=== PATIENT | male | born 2000 | race Caucasian/White ===

== ENCOUNTER 2020-02-27 15:17 | Emergency (ER) | payer BC, OTHER ==
[~2020-02-27] VITALS: Ht 170 cm; Wt 65.0 kg
--- OUTSIDE RECORDS SUMMARY | 2020-02-27 15:23 | XMS REPORT | Continuity of Care Document ---
Author Organization Unknown Address Unknown Phone Unavailable Allergies There is no data. Medications There is no data. Problems There is no data. Procedures There is no data. Results Test Result Range GC/CHLAMYDIA (SWAB OR URINE)-RAPID - 09/08 18:26 CHLAMYDIA TRACHOMATIS RNA, TMA DETECTED NOT DETECTED NEISSERIA GONORRHOEAE RNA, TMA NOT DETECTED NOT DETECTED COMMENT NRG Encounters ACCT No. Visit Date/Time Discharge Status Pt. Type Provider Facility Loc./Unit Complaint [id number] 12/02/2019 07:40:00 12/02/2019 23:59: 59 CLS Outpatient ISABELA HURT LAC [facility] [id number] 04/30/2019 18:00:00 Document Registration
[2020-02-27 15:30] VITALS: BP 115/85
[2020-02-27] MEDS ORDERED: HYDR-4196 PO (15:36)
[2020-02-27] MEDS ORDERED: PENI500T PO (15:36)
[2020-02-27] MEDS ORDERED: oxyCODONE/APAP 5/325MG (PERCOCET 5) TABLET PO ONE (15:45)
--- NOTE | 2020-02-27 20:17 | ED EENT ---
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 TRIED CAVIT FROM [facility] BUT STILL HURTS. Source: patient Exam Limitations: no limitations History of Present Illness Date Seen by Provider: February 27, 2020 Time Seen by Provider: 15:22 Initial Comments Patient is a 20-year-old male presents with left upper premolar dental pain after loosing a crown eating 30 minutes prior to ED arrival. Patient with clear removed dental crown with exposed dentin. Patient applied dental wax prior to ED arrival. Reports moderate to severe pain. No other symptoms or complaints. Timing/Duration: abrupt Severity: moderate Location: dental Prearrival Treatment: over the counter meds Modifying Factors: Improves With Other (eating) Associated Symptoms: denies symptoms Allergies and Home Medications Allergies Coded Allergies: No Known Drug Allergies (Unverified , 02/27/20) Home Medications Hydrocodone/Acetaminophen 1 Each Tablet, 1 TAB PO Q6H PRN for PAIN-MODERATE Prescribed by: ANDREEA ROSARIO on 02/27/20 1536 Penicillin V Potassium 500 Mg Tablet, 500 MG PO QID Prescribed by: ANDREEA ROSARIO on 02/27/20 1536 Patient Home Medication List Home Medication List Reviewed: Yes Review of Systems Review of Systems Constitutional: see HPI Eyes: See HPI Ears: See HPI Nose: see HPI Mouth: see HPI Respiratory: see HPI Cardiovascular: no symptoms reported Past Gfjoksl-Txxqxj-Sphnla Hx Past Med/Social Hx: Reviewed Nursing Past Med/Soc Hx Patient Social History Alcohol Use: Rarely Uses Recreational Drug Use: No Smoking Status: Heavy Tobacco Smoker Type Used: Smokeless Tobacco 2nd Hand Smoke Exposure: No Recent Foreign Travel: No Contact w/Someone Who Travel: No Recent Infectious Disease Expo: No Physical Abuse: No Sexual Abuse: No Mistreated: No Fear: No Seasonal Allergies Seasonal Allergies: No Past Medical History Surgeries: Yes (LEFT FEMUR) Orthopedic Respiratory: No Cardiac: No Neurological: No Genitourinary: No Gastrointestinal: No Musculoskeletal: No Endocrine: No HEENT: No Cancer: No Psychosocial: No Blood Disorders: No Physical Exam Vital Signs Vital Signs - First Documented 02/27/20 15:26 Temp 36.9 Pulse 92 Resp 18 B/P (MAP) 115/85 (95) Pulse Ox 98 O2 Delivery Room Air Height, Weight, BMI Height: '" Weight: lbs. oz. kg; 22.00 BMI Method: General Appearance: mild distress Eyes: bilateral eye normal inspection, bilateral eye PERRL, bilateral eye EOMI Ears: bilateral ear auricle normal, bilateral ear canal normal Nose: normal inspection Mouth/Throat: pharynx normal, other (left upper pre-molar partially avulsed crown with Dentin exposure) Neck: non-tender, supple Cardiovascular: normal peripheral pulses, regular rate, rhythm Respiratory: chest non-tender, lungs clear Gastrointestinal: non tender, soft Neurologic/Psychiatric: alert, oriented x 3 Skin: normal color Progress/Results/Core Measures Results/Orders My Orders Orders - ANDREEA ROSARIO DO Oxycodone/Apap 5/325mg Tablet (Percocet (02/27/20 15:45) Medications Given in ED Current Medications Medications Dose Ordered Sig/Migue Route Start Time Stop Time Status Last Admin Dose Admin Oxycodone/ Acetaminophen 1 tab ONCE ONCE PO 02/27/20 15:45 02/27/20 15:42 DC 02/27/20 15:38 1 TAB Vital Signs/I&O 02/27/20 02/27/20 15:26 15:30 Temp 36.9 36.9 Pulse 92 92 Resp 18 18 B/P (MAP) 115/85 (95) 115/85 (95) Pulse Ox 98 98 O2 Delivery Room Air Blood Pressure Mean: 95 Departure Communication (Admissions) Abx and pain medications prescribed. Patient instructed to use dental wax and follow-up with dentist of choice [facility] Saturday Impression Primary Impression: Tooth fractures Disposition: HOME, SELF-CARE Condition: Stable Departure-Patient Inst. Decision time for Depature: 15:35 Patient Instructions: Dental Pain (DC) Add. Discharge Instructions: Follow up with dentist of choice as soon as possible All discharge instructions reviewed with patient and/or family. Voiced understanding. Scripts Hydrocodone/Acetaminophen ([place] 10-325 Tablet) 1 Each Tablet 1 TAB PO Q6H PRN for PAIN-MODERATE MDD 5 TABS for 3 Days, #14 TAB Prov: ANDREEA ROSARIO DO 02/27/20 Penicillin V Potassium (Penicillin V Potassium) 500 Mg Tablet 500 MG PO QID, #40 TAB Prov: ANDREEA ROSARIO DO 02/27/20 ANDREEA ROSARIO DO February 27, 2020 20:17
== END 2020-02-27 15:42 | disposition home or self-care (01) ==
LOC: ER FS 15:19
DX: S02.5XXA Fracture of tooth (traumatic), initial encounter for closed fracture (principal); X58.XXXA Exposure to other specified factors, initial encounter
CPT/HCPCS: 99282

== ENCOUNTER 2020-03-01 16:22 | Emergency (ER) | payer BC ==
[~2020-03-01] VITALS: Ht 170.1 cm; Wt 65.5 kg
[~2020-03-01 16:22] MED LIST: HYDR-4196 PO; PENI500T PO
[2020-03-01 16:25] VITALS: BP 133/71
[2020-03-01] MEDS ORDERED: HYDR-83 PO (16:40)
--- NOTE | 2020-03-01 16:41 | ED EENT ---
History of Present Illness General Chief Complaint: Dental Problems/Pain Stated Complaint: TOOTH PAIN,HEADACHE,VOMITING History of Present Illness Date Seen by Provider: March 01, 2020 Time Seen by Provider: 16:35 Initial Comments presents w cont'd left upper molar and jaw pain. Sent to ER from work due to having headache and tooth pain. Seen in this ER and given Hydrocodone end of last wk after tooth broke. Also taking PCN. States he has dental appt on 07 March and has been calling everywhere to get in earlier, but without results. Pain waxes and wanes, sometimes tylenol helps. Using dental paste w some relief. No swelling of face, jaw or neck. No other dental pain. Allergies and Home Medications Allergies Coded Allergies: No Known Drug Allergies (Unverified , 02/27/20) Home Medications Hydrocodone/Acetaminophen 1 Each Tablet, 1 EACH PO Q4H Prescribed by: RICARDO CELAYA on 03/01/20 1640 Penicillin V Potassium 500 Mg Tablet, 500 MG PO QID Prescribed by: ANDREEA ROSARIO on 02/27/20 1536 Patient Home Medication List Home Medication List Reviewed: Yes Review of Systems Review of Systems Constitutional: see HPI; No chills, No fever, No malaise Mouth: see HPI; denies loose teeth; pain; denies swelling, denies purulent discharge, denies previous injury Throat: denies pain, denies swelling Skin: see HPI; No change in color, No lesions, No lumps, No rash Neurological: See HPI, Headache Past Beavbpf-Akijtp-Vccwnh Hx Past Med/Social Hx: Reviewed Nursing Past Med/Soc Hx Patient Social History Alcohol Use: Occasionally Uses Recreational Drug Use: No Type Used: Smokeless Tobacco 2nd Hand Smoke Exposure: No Recent Foreign Travel: No Contact w/Someone Who Travel: No Recent Hopitalizations: No Physical Abuse: No Sexual Abuse: No Mistreated: No Fear: No Immunizations Up To Date Tetanus Booster (TDap): Unknown Seasonal Allergies Seasonal Allergies: No Past Medical History Surgeries: Yes (LEFT FEMUR) Orthopedic Respiratory: No Cardiac: No Neurological: No Genitourinary: No Gastrointestinal: No Musculoskeletal: No Endocrine: No HEENT: No Cancer: No Psychosocial: No Integumentary: No Blood Disorders: No Physical Exam Vital Signs Vital Signs - First Documented 03/01/20 16:25 Temp 36.9 Pulse 80 Resp 16 B/P (MAP) 133/71 (91) Pulse Ox 100 O2 Delivery Room Air Height, Weight, BMI Height: '" Weight: lbs. oz. kg; 22.00 BMI Method: General Appearance: WD/WN, no apparent distress Mouth/Throat: normal mouth inspection, pharynx normal, dental tenderness; No e xcessive drooling, No foreign body, No mandibular swelling, No maxillary swelling, No pharynx swelling, No pharynx tenderness, No tongue swollen, No tonsillar exudate, No tonsillar swelling, No trismus, No uvula swelling, No voice changes Neck: non-tender, supple; No lymphadenopathy (R), No lymphadenopathy (L) Skin: normal color, warm/dry dental paste filling in center of left upper mid molar. No gum swelling or evidence of abscess formation. Tender to touch Progress/Results/Core Measures Results/Orders Vital Signs/I&O 03/01/20 16:25 Temp 36.9 Pulse 80 Resp 16 B/P (MAP) 133/71 (91) Pulse Ox 100 O2 Delivery Room Air Departure Impression Primary Impression: Mandible pain Additional Impression: Dental injury Qualified Codes: S09.93XA - Unspecified injury of face, initial encounter Disposition: HOME, SELF-CARE Condition: Stable Departure-Patient Inst. Decision time for Depature: 16:40 Referrals: NO,LOCAL PHYSICIAN (PCP/Family) Primary Care Physician Patient Instructions: Fractured Tooth (DC) Add. Discharge Instructions: Keep your appointment with your Dentist on Saturday. Ask to be put on a waiting list for cancellations. All discharge instructions reviewed with patient and/or family. Voiced understanding. Scripts Hydrocodone/Acetaminophen (Hydrocodone-Acetamin 5-325 mg) 1 Each Tablet 1 EACH PO Q4H for Abdominal Pain, #15 TAB Prov: RICARDO CELAYA DO 03/01/20 RICARDO CELAYA DO March 01, 2020 16:41
--- OUTSIDE RECORDS SUMMARY | 2020-03-01 19:50 | XMS REPORT | Continuity of Care Document ---
Author Organization Unknown Address Unknown Phone Unavailable Allergies Active Description Code Type Severity Reaction Onset Reported/Identified Relationship to Patient Clinical Status Yes No Known Drug Allergies [id number] Drug Allergy Unknown N/A 02/27/2020 Medications There is no data. Problems There is no data. Procedures There is no data. Results Test Result Range GC/CHLAMYDIA (SWAB OR URINE)-RAPID - 09/08 18:26 CHLAMYDIA TRACHOMATIS RNA, TMA DETECTED NOT DETECTED NEISSERIA GONORRHOEAE RNA, TMA NOT DETECTED NOT DETECTED COMMENT NRG Encounters ACCT No. Visit Date/Time Discharge Status Pt. Type Provider Facility Loc./Unit Complaint [id number] 12/02/2019 07:40:00 12/02/2019 23:59: 59 CLS Outpatient ISABELA HURT LAC [facility] IN [facility] [id number] 04/30/2019 18:00:00 Document Registration [id number] 02/27/2020 15:19:00 020 15:42:00 [place] Emergency ANDREEA ROSARIO DO Via [facility] ER FS DENTAL PAIN
== END 2020-03-01 16:44 | disposition home or self-care (01) ==
LOC: EDUNIT# 16:22 → ER FS 16:23
DX: S09.93XA Unspecified injury of face, initial encounter (principal)
CPT/HCPCS: 99282

== ENCOUNTER 2020-03-03 00:15 | Emergency (ER) | payer BC ==
[~2020-03-03] VITALS: Ht 170.1 cm; Wt 64.5 kg
[~2020-03-03 00:15] MED LIST changes: +HYDR-83 PO
--- OUTSIDE RECORDS SUMMARY | 2020-03-03 00:24 | XMS REPORT | Continuity of Care Document ---
Author Organization Unknown Address Unknown Phone Unavailable Allergies Active Description Code Type Severity Reaction Onset Reported/Identified Relationship to Patient Clinical Status Yes No Known Drug Allergies [id number] Drug Allergy Unknown N/A 02/27/2020 Medications There is no data. Problems Date Dx Coded Attending Type Code Diagnosis Diagnosed By 03/01/2020 ANDREEA ROSARIO DO Ot K08.89 OTHER SPECIFIED DISORDERS OF TEETH AND S 03/01/2020 ANDREEA ROSARIO DO Ot S02.5XXA FRACTURE OF TOOTH (TRAUMATIC), INIT FOR 03/01/2020 ANDREEA ROSARIO DO Ot X58.XXXA EXPOSURE TO OTHER SPECIFIED FACTORS, INI Procedures There is no data. Results Test Result Range GC/CHLAMYDIA (SWAB OR URINE)-RAPID - 09/08 18:26 CHLAMYDIA TRACHOMATIS RNA, TMA DETECTED NOT DETECTED NEISSERIA GONORRHOEAE RNA, TMA NOT DETECTED NOT DETECTED COMMENT NRG Encounters ACCT No. Visit Date/Time Discharge Status Pt. Type Provider Facility Loc./Unit Complaint [id number] 12/02/2019 07:40:00 12/02/2019 23:59: 59 CLS Outpatient ISABELA HURT LAC [facility] [id number] 04/30/2019 18:00:00 Document Registration [id number] 03/01/2020 16:23:00 020 16:44:00 DIS Emergency NENOVENSTRICARDO MCDONALD DO Via [facility] ER FS TOOTH PAIN,HEADACHE,VOMITING [id number] 02/27/2020 15:19:00 020 15:42:00 DIS Outpatient ANDREEA ROSARIO DO Via [facility] ER FS DENTAL PAIN [id number] 03/03/2020 00:19:[address] Emergency GEORGE ALEMAN DO Via [facility] ER FS LEFT THUMB PAIN
[2020-03-03 00:27] VITALS: BP 127/60
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
[2020-03-03] MEDS ORDERED: HYDR-83 PO (00:54)
[2020-03-03] MEDS ORDERED: DOXY100T2 PO (00:54)
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
== END 2020-03-03 01:02 | disposition home or self-care (01) ==
LOC: EDUNIT# 00:15 → ER FS 00:19
DX: S60.222A Contusion of left hand, initial encounter (principal); Y04.0XXA Assault by unarmed brawl or fight, initial encounter
CPT/HCPCS: 73130

== ENCOUNTER 2020-03-28 18:56 | Emergency (ER) | payer BC, OTHER ==
[~2020-03-28] VITALS: Ht 170.1 cm; Wt 62.9 kg
[~2020-03-28 18:56] MED LIST changes: +DOXY100T2 PO
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
[2020-03-28 19:19] VITALS: BP 119/70
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
== END 2020-03-28 19:22 ==
LOC: EDUNIT# 18:56 → ER FS 18:57
DX: Z03.89 Encounter for observation for other suspected diseases and conditions ruled out (principal)
CPT/HCPCS: 99283

== ENCOUNTER 2020-04-20 17:56 | Emergency (ER) | payer OTHER ==
[~2020-04-20] VITALS: Ht 170.1 cm; Wt 63.6 kg
--- NOTE | 2020-04-20 18:05 | NUR ---
Call to [facility] per patient request wanting to speak again with the officer on scene as wanting "to tell them alittle more." Dispatch will contact an officer.
--- NOTE | 2020-04-20 18:09 | NUR ---
Call from patient's girlfriend "Lisset" requesting the ER Dr estrada ship him to Rehab at [facility] from here. Girlfriend was pt's transportation from scene after refusal of the EMS transport. Explained the patient awake and alert and can update her after a medical screening exam performed as pt is currently capable of making his decisions.
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
[2020-04-20 18:11] LABS: HEMATOCRIT 44 % (40-54); HEMOGLOBIN 14.4 G/DL (13.3-17.7); MEAN CORPUSCULAR HEMOGLOBIN 30 PG (25-34); MEAN CORPUSCULAR HGB CONC 33 G/DL (32-36); MEAN CORPUSCULAR VOLUME 90 FL (80-99); MEAN PLATELET VOLUME 11.3 FL (7.4-10.4); PLATELET COUNT 231 10^3/uL (130-400); WHITE BLOOD COUNT 10.3 10^3/uL (4.3-11.0)
[2020-04-20 18:12] LABS: BASOPHILS # (AUTO) 0.1 10^3/uL (0.0-0.1); BASOPHILS % (AUTO) 1 % (0-10); EOSINOPHILS % (AUTO) 0 % (0-10); LYMPHOCYTES # (AUTO) 2.6 X 10^3 (1.0-4.0); LYMPHOCYTES % (AUTO) 25 % (12-44); MONOCYTES # (AUTO) 0.7 X 10^3 (0.0-1.0); MONOCYTES % (AUTO) 7 % (0-12); NEUTROPHILS # (AUTO) 6.9 X 10^3 (1.8-7.8); NEUTROPHILS % (AUTO) 67 % (42-75); RED CELL DISTRIBUTION WIDTH 12.7 % (10.0-14.5)
--- NOTE | 2020-04-20 18:14 | Diagnostic Imaging Report ---
EXAMINATION: Chest 1 view HISTORY: Drug overdose. COMPARISON: None available. FINDINGS: The lung volumes are normal. No focal consolidation is seen. No large pleural effusion or pneumothorax is seen. The cardiomediastinal silhouette is normal in size and contour. No acute osseous abnormality is seen. IMPRESSION: 1. No acute pleuroparenchymal process. Dictated by: Dictated on workstation # [id number]
[2020-04-20] MEDS ORDERED: NALOXONE 0.4 MG/ML 1 ML (NARCAN) VIAL IV ONE (18:15)
[2020-04-20] MEDS ORDERED: NS IV 1000 ML 1,000 ML IV SCH (18:15)
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
[2020-04-20 18:28] LABS: ALANINE AMINOTRANSFERASE 23 U/L (0-55); ALKALINE PHOSPHATASE 77 U/L (40-136); BILIRUBIN,TOTAL 0.4 MG/DL (0.1-1.0); BUN/CREATININE RATIO 11; CALCIUM 9.7 MG/DL (8.5-10.1); CARBON DIOXIDE 26 MMOL/L (21-32); CHLORIDE 103 MMOL/L (98-107); CREATININE SERUM 1.14 MG/DL (0.60-1.30); GFR ESTIMATED > 60; GLUCOSE 107 MG/DL (70-105); SODIUM 144 MMOL/L (135-145); TOTAL PROTEIN 7.4 GM/DL (6.4-8.2)
[2020-04-20 18:29] LABS: ACETAMINOPHEN < 10 UG/ML (10-30); ALBUMIN 4.8 GM/DL (3.2-4.5); SALICYLATE < 0.3 MG/DL (5.0-20.0)
[2020-04-20 19:12] LABS: AMPHETAMINE SCREEN, URINE NEGATIVE (NEGATIVE); BARBITURATE SCREEN URINE NEGATIVE (NEGATIVE); BENZODIAZEPINES SCREEN URINE NEGATIVE (NEGATIVE); CANNABINOID SCREEN, URINE NEGATIVE (NEGATIVE); COCAINE SCREEN URINE NEGATIVE (NEGATIVE); METHADONE STAT NEGATIVE (NEGATIVE); METHAMPHETAMINE SCREEN URINE S NEGATIVE (NEGATIVE); OPIATE SCREEN URINE NEGATIVE (NEGATIVE); OXYCODONE STAT NEGATIVE (NEGATIVE); PROPOXYPHENE STAT NEGATIVE (NEGATIVE); TRICYCLIC ANTIDEPRESSANTS SCRE NEGATIVE (NEGATIVE)
[2020-04-20 20:21] VITALS: BP 107/45
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
== END 2020-04-20 20:22 | disposition home or self-care (01) ==
LOC: EDUNIT# 17:56 → ER FS 17:59
DX: T50.901A Poisoning by unspecified drugs, medicaments and biological substances, accidental (unintentional), initial encounter (principal)
CPT/HCPCS: 36415; 71045; 80053; 80306; 85025; 96374; 99284; G0480 ×3; 80320; 80329

== ENCOUNTER 2021-09-10 00:41 | Emergency (ER) | payer SELFPAY ==
[~2021-09-10 00:41] MED LIST changes: +ACHD5005 PO; -HYDR-83 PO
[2021-09-10] MEDS ORDERED: oxyCODONE/APAP 5/325MG (PERCOCET 5) TABLET PO ONE (01:00)
[2021-09-10] MEDS ORDERED: HYDR-3817 PO (01:02)
[2021-09-10] MEDS ORDERED: PENI500T PO (01:02)
--- NOTE | 2021-09-10 01:03 | ED EENT ---
History of Present Illness General Chief Complaint: Dental Problems/Pain Stated Complaint: RT AND LT JAW PAIN Nursing Triage Note: Pt complaining of right and left upper dental pain Source: patient, diplomatic interpreter Exam Limitations: no limitations History of Present Illness Date Seen by Provider: Sep 10, 2021 Time Seen by Provider: 00:57 Initial Comments Patient is a 21-year-old male who presents with bilateral mandible pain with dental pain and dental caries. Symptoms been ongoing for the past several days. Patient has been using clove oil with limited relief. No trismus drooling or dysphonia. Patient currently does not have the funds to get into see a dentist. No facial erythema swelling or cellulitis. Timing/Duration: gradual Location: facial, dental Prearrival Treatment: other Modifying Factors: Improves With Other Associated Symptoms: other Allergies and Home Medications Allergies Coded Allergies: No Known Drug Allergies (Unverified , 02/27/20) Patient Home Medication List Home Medication List Reviewed: Yes Doxycycline Hyclate (Doxycycline Hyclate) 100 Mg Tablet, 100 MG PO BID Prescribed by: ASH VAZQUEZ on 03/03/20 0054 Hydrocodone/Acetaminophen (Hydrocodone-Acetamin 5-325 mg) 1 Each Tablet, 1 EACH PO Q4H Prescribed by: RICARDO CELAYA on 03/01/20 1640 Hydrocodone/Acetaminophen (Hydrocodone-Acetamin 5-325 mg) 1 Each Tablet, 1 EACH PO Q4H Prescribed by: ASH VAZQUEZ on 03/03/20 0054 Penicillin V Potassium (Penicillin V Potassium) 500 Mg Tablet, 500 MG PO QID Prescribed by: ANDREEA ROSARIO on 02/27/20 1536 Review of Systems Review of Systems Constitutional: see HPI Eyes: See HPI Ears: See HPI Nose: see HPI Mouth: see HPI Throat: see HPI Past Nmoygjf-[id number]-Wprutq Hx Patient Social History Tobacco Use?: Yes Use of E-Cig and/or Vaping dev: No Substance use?: No Alcohol Use?: No Pt feels they are or have been: No Immunizations Up To Date Tetanus Booster (TDap): Unknown Seasonal Allergies Seasonal Allergies: No Past Medical History Surgeries: Yes (LEFT FEMUR) Orthopedic Respiratory: No Cardiac: No Neurological: No Genitourinary: No Gastrointestinal: No Musculoskeletal: No Endocrine: No HEENT: No Cancer: No Psychosocial: Yes (Substance abuse) Integumentary: No Blood Disorders: No Physical Exam Vital Signs Vital Signs - First Documented 09/10/21 00:45 Temp 37.0 Pulse 100 Resp 16 B/P (MAP) 112/72 (85) Pulse Ox 99 O2 Delivery Room Air Height, Weight, BMI Height: '" Weight: lbs. oz. kg; 21.00 BMI Method: General Appearance: moderate distress Mouth/Throat: dental tenderness (Left lower premolar), mandibular swelling (Posterior, mild, no erythema warmth or fluctuance) Neck: full range of motion, supple Progress/Results/Core Measures Results/Orders My Orders Orders - ANDREEA ROSARIO DO Oxycodone/Apap 5/325mg Tablet (Percocet (09/10/21 01:00) Vital Signs/I&O 09/10/21 00:45 Temp 37.0 Pulse 100 Resp 16 B/P (MAP) 112/72 (85) Pulse Ox 99 O2 Delivery Room Air Blood Pressure Mean: 85 Departure Communication (Admissions) Dental pain secondary to dental caries. Patient instructed him to follow-up with low-cost dental clinic. Pain addressed antibiotics prescribed to local pharmacy. Impression Primary Impression: Dental caries Disposition: HOME, SELF-CARE Condition: Stable Departure-Patient Inst. Decision time for Depature: 01:00 Referrals: NO,LOCAL PHYSICIAN (PCP/Family) Primary Care Physician Patient Instructions: Tooth Decay, Adult, Dental Pain Add. Discharge Instructions: Please take medications as prescribed and follow-up with low-cost dental clinic [facility]. All discharge instructions reviewed with patient and/or family. Voiced understanding. Scripts Hydrocodone/Acetaminophen (Hydrocodone-Acetamin 7.5-325) 1 Each Tablet 1 EACH PO Q6H, #10 TAB Prov: ANDREEA ROSARIO DO 09/10/21 Penicillin V Potassium (Penicillin V Potassium) 500 Mg Tablet 500 MG PO QID, #40 TAB Prov: ANDREEA ROSARIO DO 09/10/21 ANDREEA ROSARIO DO Sep 10, 2021 01:03
[2021-09-10 01:04] VITALS: BP 112/72
== END 2021-09-10 01:04 | disposition home or self-care (01) ==
LOC: EDUNIT# 00:41 → ER FS 00:44
DX: K02.9 Dental caries, unspecified (principal); Z72.0 Tobacco use
CPT/HCPCS: 99283

== ENCOUNTER 2021-10-03 18:15 | Emergency (ER) | payer SELFPAY ==
[~2021-10-03] VITALS: Ht 170 cm; Wt 70.0 kg
[~2021-10-03 18:15] MED LIST changes: +HYDR-3817 PO
--- NOTE | 2021-10-03 18:22 | ED General ---
General Stated Complaint: LT ARM/CHEST/BACK OF NECK PAIN,DIZZY History of Present Illness Date Seen by Provider: Oct 03, 2021 Time Seen by Provider: 18:22 Initial Comments 21-year-old male presents with left chest pain left arm pain, diffuse back of his neck pain is nonspecific, dizziness. He reports that symptoms started yesterday. That he feels like he is mildly short of breath. Hurts to take a deep breath or if you press on his chest. Patient reports he had Covid 2 months ago. Patient very anxious. He reports that both his hands get a little bit numb. Patient denies any cough, fever, chills. No known sick contacts. He denies any nausea, vomiting, diaphoresis, abdominal pain or other systemic complaints. Allergies and Home Medications Allergies Coded Allergies: No Known Drug Allergies (Unverified , 02/27/20) Patient Home Medication List Home Medication List Reviewed: Yes Doxycycline Hyclate (Doxycycline Hyclate) 100 Mg Tablet, 100 MG PO BID Prescribed by: ASH VAZQUEZ on 03/03/20 005 Hydrocodone/Acetaminophen (Hydrocodone-Acetamin 5-325 mg) 1 Each Tablet, 1 EACH PO Q4H Prescribed by: RICARDO CELAYA on 03/01/20 1640 Hydrocodone/Acetaminophen (Hydrocodone-Acetamin 5-325 mg) 1 Each Tablet, 1 EACH PO Q4H Prescribed by: ASH VAZQUEZ on 03/03/20 0054 Hydrocodone/Acetaminophen (Hydrocodone-Acetamin 7.5-325) 1 Each Tablet, 1 EACH PO Q6H Prescribed by: ANDREEA ROSARIO on 09/10/21101 Penicillin V Potassium (Penicillin V Potassium) 500 Mg Tablet, 500 MG PO QID Prescribed by: ANDREEA ROSARIO on 02/27/20 1536 Penicillin V Potassium (Penicillin V Potassium) 500 Mg Tablet, 500 MG PO QID Prescribed by: ANDREEA ROSARIO on 09/10/21101 Review of Systems Review of Systems Constitutional: No chills; dizziness; No fever EENTM: see HPI Respiratory: see HPI, short of breath Cardiovascular: chest pain, palpitations Gastrointestinal: No abdominal pain, No nausea, No vomiting Genitourinary: no symptoms reported Musculoskeletal: see HPI Skin: no symptoms reported Psychiatric/Neurological: See HPI Hematologic/Lymphatic: No Symptoms Reported Immunological/Allergic: no symptoms reported Past Voailcg-Uzdkmq-Oajouw Hx Immunizations Up To Date Tetanus Booster (TDap): Unknown Seasonal Allergies Seasonal Allergies: No Past Medical History Surgeries: Yes (LEFT FEMUR) Orthopedic Respiratory: No Cardiac: No Neurological: No Genitourinary: No Gastrointestinal: No Musculoskeletal: No Endocrine: No HEENT: No Cancer: No Psychosocial: Yes (Substance abuse) Integumentary: No Blood Disorders: No Physical Exam Vital Signs Vital Signs - First Documented 10/03/21 18:58 Temp 36.4 Pulse 75 Resp 20 B/P (MAP) 122/74 (90) Pulse Ox 97 Capillary Refill : Height, Weight, BMI Height: '" Weight: lbs. oz. kg; 21.00 BMI Method: General Appearance: Anxious Neck: Full Range of Motion, Supple, Tender Lateral, Tender Midline Respiratory: Lungs Clear, Normal Breath Sounds, Other (Tenderness to the chest wall ) Cardiovascular: Regular Rate, Rhythm, No Edema Gastrointestinal: Non Tender, Soft Back: Normal Inspection Extremity: Normal Capillary Refill, Normal Inspection, Normal Range of Motion Neurologic/Psychiatric: Alert, Oriented x3, Other (Very anxious) Focused Exam Lactate Level 10/03/21 18:50: Lactic Acid Level 1.31 Lactic Acid Level Laboratory Tests Test 10/03/21 18:50 Lactic Acid Level 1.31 MMOL/L (0.50-2.00) Progress/Results/Core Measures Suspected Sepsis SIRS Temperature: Pulse: Respiratory Rate: Laboratory Tests 10/03/21 18:33: White Blood Count 6.5 Blood Pressure / Mean: 10/03/21 18:50: Lactic Acid Level 1.31 Laboratory Tests 10/03/21 18:33: Creatinine 1.00, Platelet Count 252, Total Bilirubin 0.6 Results/Orders Lab Results Laboratory Tests Test 10/03/21 18:33 10/03/21 18:40 10/03/21 18:50 Range/Units White Blood Count 6.5 4.3-11.0 10^3/uL Red Blood Count 5.03 4.30-5.52 10^6/uL Hemoglobin 15.3 13.3-17.7 g/dL Hematocrit 46 40-54 % Mean Corpuscular Volume 91 80-99 fL Mean Corpuscular Hemoglobin 30 25-34 pg Mean Corpuscular Hemoglobin Concent 34 32-36 g/dL Red Cell Distribution Width 12.2 10.0-14.5 % Platelet Count 252 130-400 10^3/uL Mean Platelet Volume 10.8 9.0-12.2 fL Immature Granulocyte % (Auto) 0 % Neutrophils (%) (Auto) 68 42-75 % Lymphocytes (%) (Auto) 23 12-44 % Monocytes (%) (Auto) 7 0-12 % Eosinophils (%) (Auto) 1 0-10 % Basophils (%) (Auto) 0 0-10 % Neutrophils # (Auto) 4.5 1.8-7.8 X 10^3 Lymphocytes # (Auto) 1.5 1.0-4.0 X 10^3 Monocytes # (Auto) 0.5 0.0-1.0 X 10^3 Eosinophils # (Auto) 0.1 0.0-0.3 10^3/uL Basophils # (Auto) 0.0 0.0-0.1 10^3/uL Immature Granulocyte # (Auto) 0.0 0.0-0.1 10^3/uL D-Dimer 0.28 0.00-0.49 UG/ML Sodium Level 138 135-145 MMOL/L Potassium Level 3.9 3.6-5.0 MMOL/L Chloride Level 100 98-107 MMOL/L Carbon Dioxide Level 25 21-32 MMOL/L Anion Gap 13 5-14 MMOL/L Blood Urea Nitrogen 9 7-18 MG/DL Creatinine 1.00 0.60-1.30 MG/DL Estimat Glomerular Filtration Rate 93 BUN/Creatinine Ratio 9 Glucose Level 126 H 70-105 MG/DL Calcium Level 9.6 8.5-10.1 MG/DL Corrected Calcium 8.5-10.1 MG/DL Magnesium Level 2.0 1.6-2.4 MG/DL Total Bilirubin 0.6 0.1-1.0 MG/DL Aspartate Amino Transf (AST/SGOT) 16 5-34 U/L Alanine Aminotransferase (ALT/SGPT) 11 0-55 U/L Alkaline Phosphatase 99 40-136 U/L Troponin I < 0.30 <0.30 NG/ML C-Reactive Protein < 0.30 <0.50 MG/DL Total Protein 8.2 6.4-8.2 GM/DL Albumin 4.9 H 3.2-4.5 GM/DL Influenza Type A Antigen NEGATIVE NEGATIVE Influenza Type B Antigen POSITIVE H NEGATIVE Lactic Acid Level 1.31 0.50-2.00 MMOL/L My Orders Orders - VERÓNICA EDWARDS L DO Cbc With Automated Diff (10/03/21 18:24) Comprehensive Metabolic Panel (10/03/21 18:24) Lactic Acid Analyzer (10/03/21 18:24) Magnesium (10/03/21 18:24) Crp Fs (10/03/21 18:24) Troponin I Fs (10/03/21 18:24) Ketorolac Injection (Toradol Injection) (10/03/21 18:24) Orphenadrine Inj (Ed Only) (Norflex Inje (10/03/21 18:24) Chest Pa/Lat (2 View) (10/03/21 18:24) Ns Iv 1000 Ml (Sodium Chloride 0.9%) (10/03/21 18:24) Fibrin Degradation Products (10/03/21 18:29) Influenza A & B Antigens (10/03/21 19:21) Vital Signs/I&O 10/03/21 18:58 Temp 36.4 Pulse 75 Resp 20 B/P (MAP) 122/74 (90) Pulse Ox 97 Capillary Refill : Progress Note : Progress Note Patient with influenza B. I will prescribe him Tamiflu. Recommend he drinks plenty of fluids, Tylenol ibuprofen as needed for body aches fever. Also recommended he try to add zinc, vitamin C and elderberry to help with the symptoms. Patient stable and discharged home ECG Initial ECG Impression Date: Oct 03, 2021 Initial ECG Impression Time: 18:38 Initial ECG Rate: 86 Initial ECG Rhythm: Normal Sinus Comment early repol Diagnostic Imaging Diagonstic Imaging: Xray Plain Films/CT/US/NM/MRI: chest Comments Date of Exam:10/03/21 CHEST PA/LAT (2 VIEW) INDICATION: Chest pain. TIME OF EXAM: 6:35 PM CORRELATION is made with prior chest from 04/20/2020 FINDINGS: The heart size is normal. The pulmonary vascularity is unremarkable. The lungs are clear. No infiltrate, effusion or pneumothorax is detected. IMPRESSION: No acute cardiopulmonary process is detected. Departure Impression Primary Impression: Influenza B Disposition: HOME, SELF-CARE Condition: Stable Departure-Patient Inst. Referrals: NO,LOCAL PHYSICIAN (PCP/Family) Primary Care Physician Patient Instructions: Flu, Adult (DC) Add. Discharge Instructions: Drink plenty of fluids, Tylenol or ibuprofen as needed for body aches and fever. I recommend you try to add vitamin C, zinc and elderberry to help with your symptoms. You have been prescribed Tamiflu. Scripts Oseltamivir Phosphate (Tamiflu) 75 Mg Cap 75 MG PO BID, #10 CAP Prov: VERÓNICA EDWARDS DO 10/03/21 VERÓNICA EDWARDS DO Oct 03, 2021 18:22
[2021-10-03] MEDS ORDERED: ORPHENADRINE 60 MG/2 ML (NORFLEX) AMP (ED ONLY) IV STA (18:24)
[2021-10-03] MEDS ORDERED: KETOROLAC 30 MG/ML VIAL IVP STA (18:24)
[2021-10-03] MEDS ORDERED: NS IV 1000 ML 1,000 ML IV STA (18:24)
--- NOTE | 2021-10-03 18:41 | Diagnostic Imaging Report ---
INDICATION: Chest pain. TIME OF EXAM: 6:35 PM CORRELATION is made with prior chest from 04/20/2020 FINDINGS: The heart size is normal. The pulmonary vascularity is unremarkable. The lungs are clear. No infiltrate, effusion or pneumothorax is detected. IMPRESSION: No acute cardiopulmonary process is detected. Dictated by: Dictated on workstation # [id number]
[2021-10-03 18:42] LABS: BASOPHILS % (AUTO) 0 % (0-10); EOSINOPHILS % (AUTO) 1 % (0-10); HEMATOCRIT 46 % (40-54); HEMOGLOBIN 15.3 g/dL (13.3-17.7); LYMPHOCYTES % (AUTO) 23 % (12-44); MEAN CORPUSCULAR HEMOGLOBIN 30 pg (25-34); MEAN CORPUSCULAR HGB CONC 34 g/dL (32-36); MEAN CORPUSCULAR VOLUME 91 fL (80-99); MEAN PLATELET VOLUME 10.8 fL (9.0-12.2); MONOCYTES % (AUTO) 7 % (0-12); NEUTROPHILS % (AUTO) 68 % (42-75); PLATELET COUNT 252 10^3/uL (130-400); WHITE BLOOD COUNT 6.5 10^3/uL (4.3-11.0)
[2021-10-03 18:43] LABS: EOSINOPHILS # (AUTO) 0.1 10^3/uL (0.0-0.3); LYMPHOCYTES # (AUTO) 1.5 X 10^3 (1.0-4.0); MONOCYTES # (AUTO) 0.5 X 10^3 (0.0-1.0); NEUTROPHILS # (AUTO) 4.5 X 10^3 (1.8-7.8)
[2021-10-03 19:07] LABS: ALANINE AMINOTRANSFERASE 11 U/L (0-55); ALKALINE PHOSPHATASE 99 U/L (40-136); BILIRUBIN,TOTAL 0.6 MG/DL (0.1-1.0); BUN/CREATININE RATIO 9; CALCIUM 9.6 MG/DL (8.5-10.1); CARBON DIOXIDE 25 MMOL/L (21-32); CHLORIDE 100 MMOL/L (98-107); GFR ESTIMATED 93; GLUCOSE 126 MG/DL (70-105); POTASSIUM 3.9 MMOL/L (3.6-5.0); SODIUM 138 MMOL/L (135-145)
[2021-10-03 19:08] LABS: ALBUMIN 4.9 GM/DL (3.2-4.5); TOTAL PROTEIN 8.2 GM/DL (6.4-8.2)
[2021-10-03] MEDS ORDERED: OSELTAMIVIR 75 MG (TAMIFLU) CAPSULE PO ONE (19:30)
[2021-10-03] MEDS ORDERED: OSLT75C PO (19:34)
[2021-10-03 19:40] VITALS: BP 109/69
== END 2021-10-03 19:35 | disposition home or self-care (01) ==
LOC: EDUNIT# 18:15 → ER FS 18:16
DX: J10.1 Influenza due to other identified influenza virus with other respiratory manifestations (principal)
CPT/HCPCS: 36415; 71046; 80053; 83605; 83735; 84484; 85025; 85379; 86141; 87804

== ENCOUNTER 2021-11-17 17:00 | Emergency (ER) | payer SELFPAY ==
[~2021-11-17] VITALS: Ht 170.2 cm; Wt 64.5 kg
[~2021-11-17 17:00] MED LIST changes: +OSLT75C PO
[2021-11-17 17:04] VITALS: BP 118/75
--- NOTE | 2021-11-17 17:04 | ED Hip Pain/Injury ---
General Chief Complaint: Hip/Pelvic Problems Stated Complaint: HIP PAIN/BURNING History of Present Illness Date Seen by Provider: Nov 17, 2021 Time Seen by Provider: 17:04 Initial Comments 21-year-old male presents with burning in his left lower abdomen is radiated to his right lower abdomen now. Patient reports that start about 4 days ago and is staying steady maybe got little worse. Patient thought maybe he is constipated because he had had a day and having a bowel movement but he has had a normal b owel movement since then. Dates he has a little bit of discomfort with urination. No blood in his urine. No nausea, vomiting, fever. Patient denies any cough, he reports that the recently just got over Covid. Allergies and Home Medications Allergies Coded Allergies: No Known Drug Allergies (Unverified , 02/27/20) Patient Home Medication List Home Medication List Reviewed: Yes Doxycycline Hyclate (Doxycycline Hyclate) 100 Mg Tablet, 100 MG PO BID Prescribed by: ASH VAZQUEZ on 03/03/20 0054 Hydrocodone/Acetaminophen (Hydrocodone-Acetamin 5-325 mg) 1 Each Tablet, 1 EACH PO Q4H Prescribed by: RICARDO CELAYA on 03/01/20 1640 Hydrocodone/Acetaminophen (Hydrocodone-Acetamin 5-325 mg) 1 Each Tablet, 1 EACH PO Q4H Prescribed by: ASH VAZQUEZ on 03/03/20 0054 Hydrocodone/Acetaminophen (Hydrocodone-Acetamin 7.5-325) 1 Each Tablet, 1 EACH PO Q6H Prescribed by: ANDREEA ROSARIO on 09/10/21101 Oseltamivir Phosphate (Tamiflu) 75 Mg Cap, 75 MG PO BID Prescribed by: VERÓNICA EDWARDS on 10/03/21 193 Penicillin V Potassium (Penicillin V Potassium) 500 Mg Tablet, 500 MG PO QID Prescribed by: ANDREEA ROSARIO on 02/27/20 153 Penicillin V Potassium (Penicillin V Potassium) 500 Mg Tablet, 500 MG PO QID Prescribed by: ANDREEA ROSARIO on 09/10/21101 Review of Systems Constitutional: No chills, No fever Respiratory: no symptoms reported Cardiovascular: no symptoms reported Gastrointestinal: see HPI Musculoskeletal: see HPI Skin: no symptoms reported Psychiatric/Neurological: No Symptoms Reported Past Lnscwbg-Dmrsrp-Pjgqrd Hx Immunizations Up To Date Tetanus Booster (TDap): Unknown Seasonal Allergies Seasonal Allergies: No Past Medical History Surgeries: Yes (LEFT FEMUR) Orthopedic Respiratory: No Cardiac: No Neurological: No Genitourinary: No Gastrointestinal: No Musculoskeletal: No Endocrine: No HEENT: No Cancer: No Psychosocial: Yes (Substance abuse) Integumentary: No Blood Disorders: No Physical Exam Vital Signs Vital Signs - First Documented 11/17/21 17:04 Temp 36.9 Pulse 108 Resp 14 B/P (MAP) 118/75 (89) Pulse Ox 98 O2 Delivery Room Air Capillary Refill : Height, Weight, BMI Height: '" Weight: lbs. oz. kg; 24.00 BMI Method: General Appearance: No Apparent Distress, WD/WN Cardiovascular: Regular Rate, Rhythm, No Edema Respiratory: Lungs Clear, Normal Breath Sounds Gastrointestinal: Soft, Tenderness (Mild tenderness suprapubic and left lower quadrant no rebound) Extremity: Normal Capillary Refill, Normal Inspection, Normal Range of Motion Neurologic/Psychiatric: Alert, Oriented x3 Skin: Normal Color, Warm/Dry Progress/Results/Core Measures Results/Orders Lab Results Laboratory Tests Test 11/17/21 17:04 11/17/21 17:15 Range/Units Urine Color YELLOW Urine Clarity CLEAR Urine pH 6.5 5-9 Urine Specific [place] 1.020 1.016-1.022 Urine Protein NEGATIVE NEGATIVE Urine Glucose (UA) NEGATIVE NEGATIVE Urine Ketones NEGATIVE NEGATIVE Urine Nitrite NEGATIVE NEGATIVE Urine Bilirubin NEGATIVE NEGATIVE Urine Urobilinogen 0.2 < = 1.0 MG/DL Urine Leukocyte Esterase NEGATIVE NEGATIVE Urine RBC (Auto) NEGATIVE NEGATIVE Urine RBC NONE /HPF Urine WBC 2-5 /HPF Urine Crystals NONE /LPF Urine Bacteria TRACE /HPF Urine Casts NONE /LPF Urine Mucus LARGE H /LPF Urine Culture Indicated NO White Blood Count 7.0 4.3-11.0 10^3/uL Red Blood Count 4.80 4.30-5.52 10^6/uL Hemoglobin 14.5 13.3-17.7 g/dL Hematocrit 44 40-54 % Mean Corpuscular Volume 91 80-99 fL Mean Corpuscular Hemoglobin 30 25-34 pg Mean Corpuscular Hemoglobin Concent 33 32-36 g/dL Red Cell Distribution Width 11.9 10.0-14.5 % Platelet Count 228 130-400 10^3/uL Mean Platelet Volume 11.3 9.0-12.2 fL Immature Granulocyte % (Auto) 0 % Neutrophils (%) (Auto) 63 42-75 % Lymphocytes (%) (Auto) 28 12-44 % Monocytes (%) (Auto) 8 0-12 % Eosinophils (%) (Auto) 1 0-10 % Basophils (%) (Auto) 0 0-10 % Neutrophils # (Auto) 4.4 1.8-7.8 X 10^3 Lymphocytes # (Auto) 1.9 1.0-4.0 X 10^3 Monocytes # (Auto) 0.6 0.0-1.0 X 10^3 Eosinophils # (Auto) 0.1 0.0-0.3 10^3/uL Basophils # (Auto) 0.0 0.0-0.1 10^3/uL Immature Granulocyte # (Auto) 0.0 0.0-0.1 10^3/uL Sodium Level 141 135-145 MMOL/L Potassium Level 3.9 3.6-5.0 MMOL/L Chloride Level 104 98-107 MMOL/L Carbon Dioxide Level 24 21-32 MMOL/L Anion Gap 13 5-14 MMOL/L Blood Urea Nitrogen 13 7-18 MG/DL Creatinine 0.99 0.60-1.30 MG/DL Estimat Glomerular Filtration Rate 110 BUN/Creatinine Ratio 13 Glucose Level 120 H 70-105 MG/DL Calcium Level 9.4 8.5-10.1 MG/DL Corrected Calcium 8.5-10.1 MG/DL Total Bilirubin 0.6 0.1-1.0 MG/DL Aspartate Amino Transf (AST/SGOT) 12 5-34 U/L Alanine Aminotransferase (ALT/SGPT) 9 0-55 U/L Alkaline Phosphatase 71 40-136 U/L C-Reactive Protein < 0.30 <0.50 MG/DL Total Protein 7.8 6.4-8.2 GM/DL Albumin 5.0 H 3.2-4.5 GM/DL Lipase 35 8-78 U/L My Orders Orders - EDWARDS,VERÓNICA L DO Cbc With Automated Diff (11/17/21 17:11) Comprehensive Metabolic Panel (11/17/21 17:11) Lipase (11/17/21 17:11) Ua Culture If Indicated (11/17/21 17:11) Crp Fs (11/17/21 17:11) Lactated Ringers (Lr 1000 Ml Iv Solution (11/17/21 17:11) Ed Iv/Invasive Line Start (11/17/21 17:11) Ketorolac Injection (Toradol Injection) (11/17/21 17:35) Abdomen Flat & Upright/Decub (11/17/21 17:55) Vital Signs/I&O 11/17/21 17:04 Temp 36.9 Pulse 108 Resp 14 B/P (MAP) 118/75 (89) Pulse Ox 98 O2 Delivery Room Air Progress Progress Note : Progress Note Patient with no significant abdominal findings, labs or abdominal x-ray. Did offer patient CT since he is still complaining of some burning in his stomach b ut he declined. I suspect this is likely post Covid and may be a mild enteritis. I suggested he try Pepcid twice daily along with Maalox or Pepto- Bismol. If symptoms continue to worsen or not improving over the next 3 to 5 days he should follow-up with a primary care provider for further outpatient test and reevaluation Departure Impression Primary Impression: Abdominal discomfort Additional Impression: Bilateral lower abdominal discomfort Disposition: 01 HOME, SELF-CARE Condition: Stable Departure-Patient Inst. Referrals: NO,LOCAL PHYSICIAN (PCP/Family) Primary Care Physician Patient Instructions: Abdominal Pain, Adult ED, Viral Gastroenteritis Add. Discharge Instructions: I recommend you try some Maalox/, Pepto-Bismol along with Pepcid twice daily. Also suggested clear liquid diet for the next 24 hours. If symptoms or not improving over the next 3 to 5 days follow-up with your primary care provider for reevaluation. If symptoms significantly worsen or become more focal please follow-up sooner or return to the ER All discharge instructions reviewed with patient and/or family. Voiced understanding. VERÓNICA EDWARDS DO Nov 17, 2021 17:04
[2021-11-17] MEDS ORDERED: LACTATED RINGERS 1,000 ML IV STA (17:11)
[2021-11-17 17:27] LABS: BASOPHILS % (AUTO) 0 % (0-10); EOSINOPHILS # (AUTO) 0.1 10^3/uL (0.0-0.3); EOSINOPHILS % (AUTO) 1 % (0-10); HEMATOCRIT 44 % (40-54); HEMOGLOBIN 14.5 g/dL (13.3-17.7); LYMPHOCYTES # (AUTO) 1.9 X 10^3 (1.0-4.0); LYMPHOCYTES % (AUTO) 28 % (12-44); MEAN CORPUSCULAR HEMOGLOBIN 30 pg (25-34); MEAN CORPUSCULAR HGB CONC 33 g/dL (32-36); MEAN CORPUSCULAR VOLUME 91 fL (80-99); MEAN PLATELET VOLUME 11.3 fL (9.0-12.2); MONOCYTES # (AUTO) 0.6 X 10^3 (0.0-1.0); MONOCYTES % (AUTO) 8 % (0-12); NEUTROPHILS # (AUTO) 4.4 X 10^3 (1.8-7.8); NEUTROPHILS % (AUTO) 63 % (42-75); PLATELET COUNT 228 10^3/uL (130-400)
[2021-11-17 17:33] LABS: BACTERIA,URINE TRACE /HPF; BILIRUBIN,URINE NEGATIVE (NEGATIVE); CLARITY,URINE CLEAR; COLOR,URINE YELLOW; GLUCOSE, URINE (UA) NEGATIVE (NEGATIVE); KETONES,URINE NEGATIVE (NEGATIVE); LEUKOCYTE ESTERASE ,URINE NEGATIVE (NEGATIVE); NITRITE,URINE NEGATIVE (NEGATIVE); PH,URINE 6.5 (5-9); PROTEIN,URINE NEGATIVE (NEGATIVE)
[2021-11-17] MEDS ORDERED: KETOROLAC 30 MG/ML VIAL IVP STA (17:35)
[2021-11-17 17:47] LABS: BILIRUBIN,TOTAL 0.6 MG/DL (0.1-1.0); BUN/CREATININE RATIO 13; CALCIUM 9.4 MG/DL (8.5-10.1); CARBON DIOXIDE 24 MMOL/L (21-32); CHLORIDE 104 MMOL/L (98-107); CREATININE SERUM 0.99 MG/DL (0.60-1.30); GFR ESTIMATED 110; GLUCOSE 120 MG/DL (70-105); POTASSIUM 3.9 MMOL/L (3.6-5.0); SODIUM 141 MMOL/L (135-145)
[2021-11-17 17:48] LABS: ALANINE AMINOTRANSFERASE 9 U/L (0-55); ALKALINE PHOSPHATASE 71 U/L (40-136); LIPASE 35 U/L (8-78); TOTAL PROTEIN 7.8 GM/DL (6.4-8.2)
--- NOTE | 2021-11-17 18:11 | Diagnostic Imaging Report ---
EXAMINATION: Abdominal radiographs, upright and supine views. DATE: November 17, 2021. CLINICAL INDICATION: 21-year-old male, abdominal pain. COMPARISON: None. COMMENTS: There are no abnormally dilated gas-filled segments of bowel. There is no identified pneumatosis, portal venous gas or free intraperitoneal air. There is no identified abnormal radiodensity overlying the kidneys or expected locations of the ureters. IMPRESSION: No radiographically apparent acute abdominal abnormality. Dictated by: Dictated on workstation # [id number]
== END 2021-11-17 18:54 | disposition home or self-care (01) ==
LOC: EDUNIT# 17:00 → ER FS 17:01
DX: R10.32 Left lower quadrant pain (principal); Z86.16 Personal history of COVID-19
CPT/HCPCS: 36415; 74019; 80053; 81000; 83690; 85025; 86141

== ENCOUNTER 2022-02-19 23:36 | Emergency (ER) | payer SELFPAY ==
[~2022-02-19] VITALS: Ht 167.7 cm; Wt 63.6 kg
--- NOTE | 2022-02-19 23:54 | ED General ---
General Stated Complaint: CHEST AND NECK PAIN History of Present Illness Date Seen by Provider: February 19, 2022 Time Seen by Provider: 23:49 Initial Comments 22-year-old male presents with left-sided chest discomfort that goes up into the left neck. Is been going on and off for at least the last 4 days but has been having issues occasionally with it for much longer than that. Patient reports it is worse at night where is almost constant kind of better comes and goes during the day. Patient describes the pain as a burning. No complaints of shortness of breath, nausea or vomiting. Allergies and Home Medications Allergies Coded Allergies: No Known Drug Allergies (Unverified , 02/27/20) Patient Home Medication List Home Medication List Reviewed: Yes Discontinued Medications Doxycycline Hyclate (Doxycycline Hyclate) 100 Mg Tablet, 100 MG PO BID Discontinued Reason: Referral/FU Appt-Addtl Prescribed by: ASH VAZQUEZ on 03/03/2053 Last Action: Discontinued Hydrocodone/Acetaminophen (Hydrocodone-Acetamin 5-325 mg) 1 Each Tablet, 1 EACH PO Q4H Discontinued Reason: Referral/FU Appt-Addtl Prescribed by: RICARDO CELAYA on 03/01/20 1640 Last Action: Discontinued Hydrocodone/Acetaminophen (Hydrocodone-Acetamin 5-325 mg) 1 Each Tablet, 1 EACH PO Q4H Discontinued Reason: Referral/FU Appt-Addtl Prescribed by: ASH VAZQUEZ on 03/03/2053 Last Action: Discontinued Hydrocodone/Acetaminophen (Hydrocodone-Acetamin 7.5-325) 1 Each Tablet, 1 EACH PO Q6H Discontinued Reason: Referral/FU Appt-Addtl Prescribed by: ANDREEA ROSARIO on 09/10/21101 Last Action: Discontinued Oseltamivir Phosphate (Tamiflu) 75 Mg Cap, 75 MG PO BID Discontinued Reason: Referral/FU Appt-Addtl Prescribed by: VERÓNICA EDWARDS on 10/03/21 1934 Last Action: Discontinued Penicillin V Potassium (Penicillin V Potassium) 500 Mg Tablet, 500 MG PO QID Discontinued Reason: Referral/FU Appt-Addtl Prescribed by: ANDREEA ROSARIO on 02/27/20 1536 Last Action: Discontinued Penicillin V Potassium (Penicillin V Potassium) 500 Mg Tablet, 500 MG PO QID Discontinued Reason: Referral/FU Appt-Addtl Prescribed by: ANDREEA ROSARIO on 09/10/21101 Last Action: Discontinued Review of Systems Review of Systems Constitutional: No chills, No fever EENTM: no symptoms reported Respiratory: see HPI Cardiovascular: see HPI, chest pain Gastrointestinal: No abdominal pain, No nausea, No vomiting Genitourinary: no symptoms reported Musculoskeletal: no symptoms reported Skin: no symptoms reported Psychiatric/Neurological: No Symptoms Reported Hematologic/Lymphatic: No Symptoms Reported Past Fthsehh-Ylvlaf-Phkbkn Hx Immunizations Up To Date Tetanus Booster (TDap): Unknown Seasonal Allergies Seasonal Allergies: No Past Medical History Surgeries: Yes (LEFT FEMUR) Orthopedic Respiratory: No Cardiac: No Neurological: No Genitourinary: No Gastrointestinal: No Musculoskeletal: No Endocrine: No HEENT: No Cancer: No Psychosocial: Yes (Substance abuse) Integumentary: No Blood Disorders: No Physical Exam Vital Signs Vital Signs - First Documented 02/19/22 23:39 Temp 36.8 Pulse 70 Resp 20 B/P (MAP) 126/74 (91) Pulse Ox 100 O2 Delivery Room Air Capillary Refill : Height, Weight, BMI Height: '" Weight: lbs. oz. 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 Norm as Tested, Other (Anxious) Skin: Normal Color, Warm/Dry Progress/Results/Core Measures Suspected Sepsis SIRS Temperature: Pulse: Respiratory Rate: Laboratory Tests 02/20/22 00:14: White Blood Count 7.2 Blood Pressure / Mean: Laboratory Tests 02/20/22 00:14: Creatinine 1.10, INR Comment 1.0, Platelet Count 235, Total Bilirubin 0.4 Results/Orders Lab Results Laboratory Tests Test 02/20/22 00:14 Range/Units White Blood Count 7.2 4.3-11.0 10^3/uL Red Blood Count 4.86 4.30-5.52 10^6/uL Hemoglobin 14.3 13.3-17.7 g/dL Hematocrit 43 40-54 % Mean Corpuscular Volume 88 80-99 fL Mean Corpuscular Hemoglobin 29 25-34 pg Mean Corpuscular Hemoglobin Concent 33 32-36 g/dL Red Cell Distribution Width 12.2 10.0-14.5 % Platelet Count 235 130-400 10^3/uL Mean Platelet Volume 11.1 9.0-12.2 fL Immature Granulocyte % (Auto) 0 % Neutrophils (%) (Auto) 51 42-75 % Lymphocytes (%) (Auto) 38 12-44 % Monocytes (%) (Auto) 9 0-12 % Eosinophils (%) (Auto) 2 0-10 % Basophils (%) (Auto) 1 0-10 % Neutrophils # (Auto) 3.6 1.8-7.8 10^3/uL Lymphocytes # (Auto) 2.7 1.0-4.0 10^3/uL Monocytes # (Auto) 0.7 0.0-1.0 10^3/uL Eosinophils # (Auto) 0.1 0.0-0.3 10^3/uL Basophils # (Auto) 0.1 0.0-0.1 10^3/uL Immature Granulocyte # (Auto) 0.0 0.0-0.1 10^3/uL Prothrombin Time 13.1 12.2-14.7 SEC INR Comment 1.0 0.8-1.4 Activated Partial Thromboplast Time 28 24-35 SEC Sodium Level 139 135-145 MMOL/L Potassium Level 3.7 3.6-5.0 MMOL/L Chloride Level 103 98-107 MMOL/L Carbon Dioxide Level 26 21-32 MMOL/L Anion Gap 10 5-14 MMOL/L Blood Urea Nitrogen 11 7-18 MG/DL Creatinine 1.10 0.60-1.30 MG/DL Estimat Glomerular Filtration Rate 96 BUN/Creatinine Ratio 10 Glucose Level 92 70-105 MG/DL Calcium Level 9.3 8.5-10.1 MG/DL Corrected Calcium 8.5-10.1 MG/DL Magnesium Level 2.3 1.6-2.4 MG/DL Total Bilirubin 0.4 0.1-1.0 MG/DL Aspartate Amino Transf (AST/SGOT) 14 5-34 U/L Alanine Aminotransferase (ALT/SGPT) 9 0-55 U/L Alkaline Phosphatase 81 40-136 U/L Myoglobin < 21.0 10.0-92.0 NG/ML Troponin I < 0.30 <0.30 NG/ML Pro-B-Type Natriuretic Peptide 13.5 <75.0 PG/ML Total Protein 7.5 6.4-8.2 GM/DL Albumin 4.7 H 3.2-4.5 GM/DL Lipase 30 8-78 U/L My Orders Orders - VERÓNICA EDWARDS DO Cbc With Automated Diff (02/19/22 23:55) Magnesium (02/19/22 23:55) Ekg Tracing (02/19/22 23:55) Comprehensive Metabolic Panel (02/19/22 23:55) Myoglobin Serum (02/19/22 23:55) Protime With Inr (02/19/22 23:55) Partial Thromboplastin Time (02/19/22 23:55) Monitor-Rhythm Ecg Trace Only (02/19/22 23:55) Aspirin Chewable Tablet (Baby Aspirin Ch (02/20/22 00:00) Ed Iv/Invasive Line Start (02/19/22 23:55) Lipase (02/19/22 23:55) Troponin I Fs (02/19/22 23:55) Probnp Fs (02/19/22 23:55) Famotidine Injection (Pepcid Injection) (02/19/22 23:55) Chest 1 View Ap/Pa Only (02/20/22 23:55) Medications Given in ED Current Medications Medications Dose Ordered Sig/Migue Route Start Time Stop Time Status Last Admin Dose Admin Aspirin 324 mg ONCE ONCE PO 02/20/22 00:00 02/20/22 00:01 DC 02/20/22 00:18 324 MG Vital Signs/I&O 02/19/22 02/20/22 02/20/22 23:39 00:00 00:15 Temp 36.8 Pulse 70 73 75 Resp 20 20 21 B/P (MAP) 126/74 (91) 113/71 107/60 Pulse Ox 100 100 98 O2 Delivery Room Air Room Air Room Air Capillary Refill : Progress Note : Progress Note Patient with normal labs and troponin. Patient with maybe some mild sinus arrhythmia on EKG but otherwise normal EKG. Patient's QRS was slightly elevated at 131 however it was very similar to the one performed on 10/03/2021. Patient's symptoms been going on for 4 days so he does not appear to be an acute coronary syndrome at this time. I did however recommend to him that he follow- up with a fishing gear mechanic for outpatient consultation on possible echo and further evaluation. Also recommended he follow-up with his primary care provider as he seems to have a little bit of underlying anxiety and stress that might be contributing to it. Patient symptoms had resolved with just Pepcid so there may be some underlying reflux however I did stress with him that I would like him to have further cardiac evaluation. Patient was stable and discharged home ECG Initial ECG Impression Date: February 19, 2022 Initial ECG Impression Time: 23:46 Initial ECG Rate: 74 Initial ECG Intervals: QT (131) Initial ECG Impression: Nonspecific Changes Initial ECG Comparisson: Unchanged Departure Impression Primary Impression: Acute nonspecific chest pain with low risk of coronary artery disease Disposition: 01 HOME, SELF-CARE Condition: Stable Departure-Patient Inst. Referrals: DANNI MOTA MD,LOCAL PHYSICIAN (PCP) Primary Care Physician Patient Instructions: Chest Pain (DC), Chest Pain That Is Not Caused by the Heart (DC) Add. Discharge Instructions: Please call cardiology office in [place] to arrange for an outpatient follow- up and recheck of your symptoms Copy Copies To 1: DANNI MOTA MD, TREVOR L DO February 19, 2022 23:54
[2022-02-19] MEDS ORDERED: FAMOTIDINE 20MG/2ML IV (PEPCID) IV STA (23:55)
[2022-02-20] MEDS ORDERED: ASPIRIN 81 MG CHEW (CHILDREN'S ASA) PO ONE
[2022-02-20 00:23] LABS: BASOPHILS # (AUTO) 0.1 10^3/uL (0.0-0.1); BASOPHILS % (AUTO) 1 % (0-10); EOSINOPHILS # (AUTO) 0.1 10^3/uL (0.0-0.3); EOSINOPHILS % (AUTO) 2 % (0-10); HEMATOCRIT 43 % (40-54); HEMOGLOBIN 14.3 g/dL (13.3-17.7); LYMPHOCYTES # (AUTO) 2.7 10^3/uL (1.0-4.0); LYMPHOCYTES % (AUTO) 38 % (12-44); MEAN CORPUSCULAR HEMOGLOBIN 29 pg (25-34); MEAN CORPUSCULAR HGB CONC 33 g/dL (32-36); MEAN CORPUSCULAR VOLUME 88 fL (80-99); MEAN PLATELET VOLUME 11.1 fL (9.0-12.2); MONOCYTES # (AUTO) 0.7 10^3/uL (0.0-1.0); MONOCYTES % (AUTO) 9 % (0-12); NEUTROPHILS # (AUTO) 3.6 10^3/uL (1.8-7.8); NEUTROPHILS % (AUTO) 51 % (42-75); PLATELET COUNT 235 10^3/uL (130-400); WHITE BLOOD COUNT 7.2 10^3/uL (4.3-11.0)
[2022-02-20 00:31] LABS: PROTHROMBIN TIME PATIENT 13.1 SEC (12.2-14.7)
[2022-02-20 00:54] LABS: ALKALINE PHOSPHATASE 81 U/L (40-136); BILIRUBIN,TOTAL 0.4 MG/DL (0.1-1.0); BUN/CREATININE RATIO 10; CALCIUM 9.3 MG/DL (8.5-10.1); CARBON DIOXIDE 26 MMOL/L (21-32); CHLORIDE 103 MMOL/L (98-107); GFR ESTIMATED 96; GLUCOSE 92 MG/DL (70-105); MAGNESIUM 2.3 MG/DL (1.6-2.4); POTASSIUM 3.7 MMOL/L (3.6-5.0); SODIUM 139 MMOL/L (135-145)
[2022-02-20 00:55] LABS: ALANINE AMINOTRANSFERASE 9 U/L (0-55); ALBUMIN 4.7 GM/DL (3.2-4.5); LIPASE 30 U/L (8-78); TOTAL PROTEIN 7.5 GM/DL (6.4-8.2)
[2022-02-20 01:20] VITALS: BP 111/69
--- NOTE | 2022-02-20 05:56 | Diagnostic Imaging Report ---
INDICATION: Chest pain. Comparison is made with prior examination of 04/20/2020. FINDINGS: The heart size, mediastinal configuration, and pulmonary vascularity are within normal limits. There is no pleural effusion, pneumothorax, or pneumonia. The osseous structures are unremarkable. IMPRESSION: No acute cardiopulmonary abnormality. Dictated by: Dictated on workstation # [id number]
== END 2022-02-20 01:20 | disposition home or self-care (01) ==
LOC: EDUNIT# 23:36 → ER FS 23:39
DX: R07.89 Other chest pain (principal); R94.31 Abnormal electrocardiogram [ECG] [EKG]
CPT/HCPCS: 36415; 71045; 80053; 83690; 83735; 83874; 83880; 84484; 85025; 85610; 85730; 93005; 93041

== ENCOUNTER 2022-06-30 18:57 | Emergency (ER) | payer SELFPAY ==
[2022-06-30] MEDS ORDERED: NS IV 1000 ML 1,000 ML IV STA (19:03)
--- NOTE | 2022-06-30 19:08 | ED General ---
General Chief Complaint: COVID19 Suspect/Confirmed Stated Complaint: DIZZINESS; FEVER; LOSS OF TASTE Source of Information: Patient History of Present Illness Date Seen by Provider: Jun 30, 2022 Time Seen by Provider: 18:58 Initial Comments 22-year-old male presenting with complaints of feeling like he is going to pass out. He also has been having epigastric pain and pain going into his back between his shoulder blades. He states epigastric pain has been going on for a long time and he could not even say when it started. The feeling like he was going to pass out especially in the last 3 to 4 days. He has been short of breath. He denies any known ill contacts. He denies any known medical problems and does not take any medicine regularly. He also reports being dizzy and feels like there is pressure in his sinuses. He denies any nasal drainage or sore th roat. He denies having a cough. Timing/Duration: 3-4 Days Severity: Moderate Associated Systoms: No Chest Pain, No Cough, No Diaphoresis, No Fever/Chills, No Headaches, No Loss of Appetite; Malaise; No Nausea/Vomiting, No Rash, No Seizure; Shortness of Air; No Syncope; Weakness Allergies and Home Medications Allergies Coded Allergies: No Known Drug Allergies (Unverified , 02/27/20) Patient Home Medication List Home Medication List Reviewed: Yes Pantoprazole Sodium (Pantoprazole Sodium) 40 Mg Tablet.dr, 40 MG PO DAILY Prescribed by: BANG MARKS on 06/30/222015 Review of Systems Review of Systems Constitutional: see HPI EENTM: other (Sinus pressure); No ear discharge, No hearing loss, No ear pain, No blurred vision, No vision loss, No nose congestion Respiratory: No cough; short of breath; No stridor, No wheezing Cardiovascular: No chest pain Gastrointestinal: abdominal pain (Epigastric abdominal pain); No diarrhea, No nausea, No vomiting Genitourinary: No dysuria Musculoskeletal: back pain (Pain between shoulder blades) Skin: No rash Psychiatric/Neurological: Denies Headache Hematologic/Lymphatic: No Symptoms Reported Immunological/Allergic: no symptoms reported Past Pfljmhx-Jaesua-Bpeowi Hx Patient Social History Tobacco Use?: No Substance use?: No Alcohol Use?: No Immunizations Up To Date Tetanus Booster (TDap): Unknown First/Initial COVID19 Vaccinat: non-vaccinated Seasonal Allergies Seasonal Allergies: No Past Medical History Surgery/Hospitalization HX: L Femur fx, Hx Opiod addiction Surgeries: Yes (LEFT FEMUR) Orthopedic Respiratory: No Cardiac: No Neurological: No Genitourinary: No Gastrointestinal: No Musculoskeletal: No Endocrine: No HEENT: No Cancer: No Psychosocial: Yes (Substance abuse) Integumentary: No Blood Disorders: No Physical Exam Vital Signs Vital Signs - First Documented 06/30/22 18:57 Temp 36.3 Pulse 86 Resp 18 B/P (MAP) 114/52 (72) Pulse Ox 100 O2 Delivery Room Air Capillary Refill : Height, Weight, BMI Height: '" Weight: lbs. oz. kg; 22.00 BMI Method: General Appearance: No Apparent Distress, WD/WN HEENT: PERRL/EOMI, Normal ENT Inspection, Pharynx Normal, Moist Mucous Membranes, Other (Some pressure over the maxillary sinuses) Neck: Full Range of Motion, Normal Inspection, Non Tender, Supple Respiratory: Chest Non Tender, Lungs Clear, Normal Breath Sounds, No Accessory Muscle Use, No Respiratory Distress Cardiovascular: Regular Rate, Rhythm, Normal Peripheral Pulses Gastrointestinal: Normal Bowel Sounds, No Pulsatile Mass, Non Tender, Soft Back: No CVA Tenderness, No Vertebral Tenderness Extremity: Normal Capillary Refill, Normal Inspection, Normal Range of Motion, Non Tender, No Calf Tenderness, No Pedal Edema Neurologic/Psychiatric: Alert, 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, 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 Norm as Tested Skin: Normal Color, Warm/Dry Progress/Results/Core Measures Suspected Sepsis SIRS Temperature: Pulse: Respiratory Rate: Laboratory Tests 06/30/22 19:04: White Blood Count 9.3 Blood Pressure / Mean: Laboratory Tests 06/30/22 19:04: Creatinine 1.03, INR Comment 1.0, Platelet Count 224, Total Bilirubin 0.4 Results/Orders Lab Results Laboratory Tests Test 06/30/22 19:04 06/30/22 19:18 Range/Units White Blood Count 9.3 4.3-11.0 10^3/uL Red Blood Count 4.76 4.30-5.52 10^6/uL Hemoglobin 14.0 13.3-17.7 g/dL Hematocrit 42 40-54 % Mean Corpuscular Volume 89 80-99 fL Mean Corpuscular Hemoglobin 29 25-34 pg Mean Corpuscular Hemoglobin Concent 33 32-36 g/dL Red Cell Distribution Width 12.3 10.0-14.5 % Platelet Count 224 130-400 10^3/uL Mean Platelet Volume 11.4 9.0-12.2 fL Immature Granulocyte % (Auto) 0 % Neutrophils (%) (Auto) 55 42-75 % Lymphocytes (%) (Auto) 27 12-44 % Monocytes (%) (Auto) 10 0-12 % Eosinophils (%) (Auto) 7 0-10 % Basophils (%) (Auto) 1 0-10 % Neutrophils # (Auto) 5.1 1.8-7.8 10^3/uL Lymphocytes # (Auto) 2.5 1.0-4.0 10^3/uL Monocytes # (Auto) 0.9 0.0-1.0 10^3/uL Eosinophils # (Auto) 0.6 H 0.0-0.3 10^3/uL Basophils # (Auto) 0.1 0.0-0.1 10^3/uL Immature Granulocyte # (Auto) 0.0 0.0-0.1 10^3/uL Prothrombin Time 13.4 12.2-14.7 SEC INR Comment 1.0 0.8-1.4 Activated Partial Thromboplast Time 28 24-35 SEC Sodium Level 139 135-145 MMOL/L Potassium Level 4.3 3.6-5.0 MMOL/L Chloride Level 101 98-107 MMOL/L Carbon Dioxide Level 25 21-32 MMOL/L Anion Gap 13 5-14 MMOL/L Blood Urea Nitrogen 18 7-18 MG/DL Creatinine 1.03 0.60-1.30 MG/DL Estimat Glomerular Filtration Rate 104 BUN/Creatinine Ratio 17 Glucose Level 123 H 70-105 MG/DL Calcium Level 9.3 8.5-10.1 MG/DL Corrected Calcium 8.5-10.1 MG/DL Magnesium Level 2.0 1.6-2.4 MG/DL Total Bilirubin 0.4 0.1-1.0 MG/DL Aspartate Amino Transf (AST/SGOT) 13 5-34 U/L Alanine Aminotransferase (ALT/SGPT) 9 0-55 U/L Alkaline Phosphatase 80 40-136 U/L Troponin I < 0.30 <0.30 NG/ML Pro-B-Type Natriuretic Peptide 20.0 <125.0 PG/ML Total Protein 7.5 6.4-8.2 GM/DL Albumin 4.7 H 3.2-4.5 GM/DL Lipase 30 8-78 U/L Serum Alcohol < 10 <10 MG/DL Influenza Type A (RT-PCR) Not Detected Not Detecte Influenza Type B (RT-PCR) Not Detected Not Detecte SARS-CoV-2 RNA (RT-PCR) Not Detected Not Detecte Urine Color YELLOW Urine Clarity CLEAR Urine pH 6.5 5-9 Urine Specific [place] 1.025 H 1.016-1.022 Urine Protein NEGATIVE NEGATIVE Urine Glucose (UA) NEGATIVE NEGATIVE Urine Ketones NEGATIVE NEGATIVE Urine Nitrite NEGATIVE NEGATIVE Urine Bilirubin NEGATIVE NEGATIVE Urine Urobilinogen 0.2 < = 1.0 MG/DL Urine Leukocyte Esterase NEGATIVE NEGATIVE Urine RBC (Auto) NEGATIVE NEGATIVE Urine RBC NONE /HPF Urine WBC 0-2 /HPF Urine Squamous Epithelial Cells 2-5 /HPF Urine Crystals PRESENT H /LPF Urine Amorphous Sediment MOD ARELIS URATES H /LPF Urine Bacteria FEW H /HPF Urine Casts NONE /LPF Urine Mucus NEGATIVE /LPF Urine Culture Indicated NO Urine Opiates Screen NEGATIVE NEGATIVE Urine Oxycodone Screen NEGATIVE NEGATIVE Urine Methadone Screen NEGATIVE NEGATIVE Urine Propoxyphene Screen NEGATIVE NEGATIVE Urine Barbiturates Screen NEGATIVE NEGATIVE Ur Tricyclic Antidepressants Screen NEGATIVE NEGATIVE Urine Phencyclidine Screen NEGATIVE NEGATIVE Urine Amphetamines Screen NEGATIVE NEGATIVE Urine Methamphetamines Screen NEGATIVE NEGATIVE Urine Benzodiazepines Screen NEGATIVE NEGATIVE Urine Cocaine Screen NEGATIVE NEGATIVE Urine Cannabinoids Screen NEGATIVE NEGATIVE My Orders Orders - BANG MARKS MD Cbc With Automated Diff (06/30/22 19:03) Magnesium (06/30/22 19:03) Chest 1 View Ap/Pa Only (06/30/22 19:03) Ekg Tracing (06/30/22 19:03) Comprehensive Metabolic Panel (06/30/22 19:03) Protime With Inr (06/30/22 19:03) Partial Thromboplastin Time (06/30/22 19:03) Monitor-Rhythm Ecg Trace Only (06/30/22 19:03) Ed Iv/Invasive Line Start (06/30/22 19:03) Lipase (06/30/22 19:03) Troponin I Fs (06/30/22 19:03) Probnp Fs (06/30/22 19:03) Ct Head Wo (06/30/22 19:03) Ua Culture If Indicated (06/30/22 19:03) Drug Screen Stat (Urine) (06/30/22 19:03) Alcohol (06/30/22 19:03) Covid 19 Inhouse Test (06/30/22 19:03) Influenza A And B By Pcr (06/30/22 19:03) Ns Iv 1000 Ml (Sodium Chloride 0.9%) (06/30/22 19:03) Pantoprazole Injection (Protonix Injecti (06/30/22 20:09) Vital Signs/I&O 06/30/22 06/30/22 18:57 20:21 Temp 36.3 Pulse 86 83 Resp 18 18 B/P (MAP) 114/52 (72) 108/84 Pulse Ox 100 96 O2 Delivery Room Air Room Air Capillary Refill : Progress Note #1: Progress Note Physical exam and vital signs are benign. We will order general testing to check labs including cardiac enzymes and urine with urine drug screen and alcohol level. CT scan of the head for sinus pressure. Chest x-ray since he was complaining of pain between the shoulder blades and feeling short of breath. Give a liter of normal saline for hydration. Progress Note #2: Time: 19:51 Progress Note labs are all stable without acute significant abnormality. The urine did have increased urine specific gravity of 1.025 which could indicate some dehydration. His chemistry panel was normal without elevation of electrolytes, renal function, liver enzymes. Lipase was also negative. CT scan of the head did not show any acute process. Chest x-ray also without acute process. Patient did receive a liter of normal saline in the ED for hydration. His COVID and influenza swabs were both negative. We will reassure patient and encourage follow-up through the clinic for continued work-up but no indication for acute admission Progress Note #3: Progress Note When reviewing results with the patient reassuring him he does admit to having a history of opioid addiction and becomes anxious when he gets sick or does not feel well. He also admits that he has taken Pepcid in the past and that has helped with his epigastric abdominal pain. He feels like he has been more stressed and anxious recently. He states that he is clean and has not been using any drugs. This is supported by his urine drug screen being clear. Reassured patient and encouraged him to drink plenty of fluids does not look like he might have some mild dehydration. Advised to check with a primary care provider for follow-up. Diagnostic Imaging Diagonstic Imaging: Xray Plain Films/CT/US/NM/MRI: chest Comments [facility], [place] NAME: MAU ONTIVEROS [facility] REC#: [id number] PT STATUS: REG ER : 2000 PHYSICIAN: BANG MARKS MD ADMIT DATE: 06/30/22/ER FS Signed Date of Exam:06/30/22 CHEST 1 VIEW AP/PA ONLY INDICATION: Shortness of breath, pain between shoulder blades. EXAMINATION: Frontal chest was obtained at 7:21 p.m. COMPARISON: 02/20/2022. Heart and mediastinal silhouette are normal in appearance. The lungs are clear. There is no pneumothorax or pleural fluid. IMPRESSION: Negative chest. Dictated by: Dictated on workstation # [id number] Dict: 06/30/221920 Trans: 06/30/221953 [facility] [id number] Interpreted by: EVA GRIFFITHS MD Electronically signed by: EVA GRIFFITHS MD 06/30/221953 Reviewed: Reviewed by Ut Diagonstic Imaging: CT Plain Films/CT/US/NM/MRI: head Comments [facility], [place] NAME: MAU ONTIVEROS [facility] REC#: [id number] PT STATUS: REG ER : 2000 PHYSICIAN: BANG MARKS MD ADMIT DATE: 06/30/22/ER FS Signed Date of Exam:06/30/22 CT HEAD WO INDICATION: Syncope, dizziness and sinus pressure. TECHNIQUE: Multiple contiguous axial images were obtained through the brain without the use of intravenous contrast. Auto Exposure Controls were utilized during the CT exam to meet ALARA standards for radiation dose reduction. COMPARISON: There is no prior head CT for comparison. FINDINGS: There are no extra-axial fluid collections. No intracranial hemorrhage. No intracranial mass or mass effect. No midline shift. The ventricles are normal in size and position. There are no focal parenchymal abnormalities in the brain. Calvarial windows are unremarkable. Visualized portions of the sinuses appear well aerated, except for some mucosal thickening in the left sphenoid sinus. Orbital contents are unremarkable. IMPRESSION: No acute intracranial abnormality. There is some mucosal thickening in the left sphenoid sinus. Dictated by: Dictated on workstation # [id number] Dict: 06/30/221920 Trans: 06/30/221953 [facility] [id number] Interpreted by: EVA GRIFFITHS MD Electronically signed by: EVA GRIFFITHS MD 06/30/221953 Reviewed: Reviewed by Me Departure Impression Primary Impression: Epigastric abdominal pain Additional Impressions: Dehydration Near syncope Disposition: HOME, SELF-CARE Condition: Stable Departure-Patient Inst. Decision time for Depature: 20:13 Referrals: NO,LOCAL PHYSICIAN (PCP) Primary Care Physician [facility] [place] Patient Instructions: Dehydration, Adult ED, Gastritis ED, Ulcer and Gastritis Diet, Near Fainting (DC) Add. Discharge Instructions: Stay well-hydrated and drink plenty of fluids. Take the acid reducing medicine to try and help with the pain in your stomach. You can call the [facility] clinic at [phone] on Saturday to see about establishing care and follow-up. Try following a bland low-fat diet to see if that might also help with your stomach pain. All discharge instructions reviewed with patient and/or family. Voiced understanding. Scripts Pantoprazole Sodium (Pantoprazole Sodium) 40 Mg Tablet. 40 MG PO DAILY for gastritis for 30 Days, #30 TAB 0 Refills Prov: BANG MARKS MD 06/30/22 BANG MARKS MD Jun 30, 2022 19:08
[2022-06-30 19:10] LABS: BASOPHILS # (AUTO) 0.1 10^3/uL (0.0-0.1); BASOPHILS % (AUTO) 1 % (0-10); EOSINOPHILS # (AUTO) 0.6 10^3/uL (0.0-0.3); EOSINOPHILS % (AUTO) 7 % (0-10); HEMATOCRIT 42 % (40-54); LYMPHOCYTES # (AUTO) 2.5 10^3/uL (1.0-4.0); LYMPHOCYTES % (AUTO) 27 % (12-44); MEAN CORPUSCULAR HEMOGLOBIN 29 pg (25-34); MEAN CORPUSCULAR HGB CONC 33 g/dL (32-36); MEAN CORPUSCULAR VOLUME 89 fL (80-99); MEAN PLATELET VOLUME 11.4 fL (9.0-12.2); MONOCYTES # (AUTO) 0.9 10^3/uL (0.0-1.0); MONOCYTES % (AUTO) 10 % (0-12); NEUTROPHILS # (AUTO) 5.1 10^3/uL (1.8-7.8); NEUTROPHILS % (AUTO) 55 % (42-75); PLATELET COUNT 224 10^3/uL (130-400); WHITE BLOOD COUNT 9.3 10^3/uL (4.3-11.0)
[2022-06-30 19:21] LABS: BILIRUBIN,URINE NEGATIVE (NEGATIVE); CLARITY,URINE CLEAR; COLOR,URINE YELLOW; GLUCOSE, URINE (UA) NEGATIVE (NEGATIVE); KETONES,URINE NEGATIVE (NEGATIVE); LEUKOCYTE ESTERASE ,URINE NEGATIVE (NEGATIVE); NITRITE,URINE NEGATIVE (NEGATIVE); PH,URINE 6.5 (5-9); PROTEIN,URINE NEGATIVE (NEGATIVE)
[2022-06-30 19:22] LABS: PROTHROMBIN TIME PATIENT 13.4 SEC (12.2-14.7)
[2022-06-30 19:24] LABS: BACTERIA,URINE FEW /HPF; WBC,URINE 0-2 /HPF
--- NOTE | 2022-06-30 19:24 | Diagnostic Imaging Report ---
INDICATION: Shortness of breath, pain between shoulder blades. EXAMINATION: Frontal chest was obtained at 7:21 p.m. COMPARISON: 02/20/2022. Heart and mediastinal silhouette are normal in appearance. The lungs are clear. There is no pneumothorax or pleural fluid. IMPRESSION: Negative chest. Dictated by: Dictated on workstation # [id number]
[2022-06-30 19:25] LABS: AMORPHOUS SEDIMENT,UR MOD AMOR URATES /LPF
--- NOTE | 2022-06-30 19:25 | Diagnostic Imaging Report ---
INDICATION: Syncope, dizziness and sinus pressure. TECHNIQUE: Multiple contiguous axial images were obtained through the brain without the use of intravenous contrast. Auto Exposure Controls were utilized during the CT exam to meet ALARA standards for radiation dose reduction. COMPARISON: There is no prior head CT for comparison. FINDINGS: There are no extra-axial fluid collections. No intracranial hemorrhage. No intracranial mass or mass effect. No midline shift. The ventricles are normal in size and position. There are no focal parenchymal abnormalities in the brain. Calvarial windows are unremarkable. Visualized portions of the sinuses appear well aerated, except for some mucosal thickening in the left sphenoid sinus. Orbital contents are unremarkable. IMPRESSION: No acute intracranial abnormality. There is some mucosal thickening in the left sphenoid sinus. Dictated by: Dictated on workstation # [id number]
[2022-06-30 19:29] LABS: ALANINE AMINOTRANSFERASE 9 U/L (0-55); ALBUMIN 4.7 GM/DL (3.2-4.5); ALKALINE PHOSPHATASE 80 U/L (40-136); BILIRUBIN,TOTAL 0.4 MG/DL (0.1-1.0); BUN/CREATININE RATIO 17; CALCIUM 9.3 MG/DL (8.5-10.1); CARBON DIOXIDE 25 MMOL/L (21-32); CHLORIDE 101 MMOL/L (98-107); CREATININE SERUM 1.03 MG/DL (0.60-1.30); GFR ESTIMATED 104; GLUCOSE 123 MG/DL (70-105); LIPASE 30 U/L (8-78); POTASSIUM 4.3 MMOL/L (3.6-5.0); SODIUM 139 MMOL/L (135-145); TOTAL PROTEIN 7.5 GM/DL (6.4-8.2)
[2022-06-30 19:32] LABS: AMPHETAMINE SCREEN, URINE NEGATIVE (NEGATIVE); BARBITURATE SCREEN URINE NEGATIVE (NEGATIVE); BENZODIAZEPINES SCREEN URINE NEGATIVE (NEGATIVE); CANNABINOID SCREEN, URINE NEGATIVE (NEGATIVE); COCAINE SCREEN URINE NEGATIVE (NEGATIVE); METHADONE STAT NEGATIVE (NEGATIVE); OPIATE SCREEN URINE NEGATIVE (NEGATIVE); OXYCODONE STAT NEGATIVE (NEGATIVE); PROPOXYPHENE STAT NEGATIVE (NEGATIVE); TRICYCLIC ANTIDEPRESSANTS SCRE NEGATIVE (NEGATIVE)
[2022-06-30] MEDS ORDERED: PANTOPRAZOLE 40 MG (PROTONIX) VIAL IV STA (20:09)
[2022-06-30] MEDS ORDERED: PANT40TA52 PO (20:16)
[2022-06-30 20:21] VITALS: BP 108/84
== END 2022-06-30 20:22 | disposition home or self-care (01) ==
LOC: EDUNIT# 18:57 → ER FS 19:00
DX: R55 Syncope and collapse (principal); R10.13 Epigastric pain; E86.0 Dehydration; Z20.822 Contact with and (suspected) exposure to COVID-19; Z28.310 Unvaccinated for COVID-19
CPT/HCPCS: 36415; 70450; 71045; 80053; 80306; 81000; 83690; 83735; 83880; 84484; 85025; 85610; 85730; 87636; 93005; 93041; 99284; G0480; 80320

== ENCOUNTER 2022-09-03 19:24 | Emergency (ER) | payer SELFPAY ==
[~2022-09-03] VITALS: Ht 165.1 cm; Wt 60.5 kg
[~2022-09-03 19:24] MED LIST changes: +PANT40TA52 PO
[2022-09-03] MEDS ORDERED: AMOX500T2 PO (19:37)
--- NOTE | 2022-09-03 19:40 | ED Abdominal Pain ---
General Chief Complaint: Abdominal/GI Problems Stated Complaint: BACK PAIN,DIZZY Source of Information: Patient Exam Limitations: No Limitations History of Present Illness Date Seen by Provider: Sep 03, 2022 Time Seen by Provider: 19:25 Initial Comments 22-year-old male with no pertinent past medical history coming in due to epigastric discomfort radiating through to his back. He states he has had the symptoms numerous times over the past year and has presented to this ER for similar symptoms. This most recent episode started 3 days ago and has been persistent. Worse with eating, better with rest. Was previously on meds for diagnosed gastritis, but has not been taking those. He states they have helped in the past. He states he was recently diagnosed with strep throat last week and has been taking amoxicillin. He is otherwise denying any nausea, vomiting, diarrhea, fever, chills, weakness, numbness, chest pain, shortness of breath, rash, dysuria, hematuria, trauma, or any other concerns. He denies any alcohol use and denies any history of gallbladder disease. Allergies and Home Medications Allergies Coded Allergies: No Known Drug Allergies (Unverified , 02/27/20) Patient Home Medication List Home Medication List Reviewed: Yes Amoxicillin (Amoxicillin) 500 Mg Tablet, 500 MG PO BID, (Reported) Entered as Reported by: PADMAJA MASON on 09/03/221936 Last Action: New Order Discontinued Medications Pantoprazole Sodium (Pantoprazole Sodium) 40 Mg Tablet.dr, 40 MG PO DAILY Discontinued Reason: Referral/FU Appt-Addtl Prescribed by: BANG MARKS on 06/30/222015 Last Action: Discontinued Review of Systems Review of Systems Constitutional: No fever EENTM: No Blurred Vision Respiratory: No Symptoms Reported Cardiovascular: No Symptoms Reported Gastrointestinal: See HPI Genitourinary: No Symptoms Reported Musculoskeletal: no symptoms reported Skin: no symptoms reported Psychiatric/Neurological: No Symptoms Reported Endocrine: No Symptoms Reported Hematologic/Lymphatic: No Symptoms Reported All Other Systems Reviewed Negative Unless Noted: Yes Past Qmyiwyk-Clpydi-Lwdbyw Hx Patient Social History Smokeless Tobacco Frequency: Current Everyday User Immunizations Up To Date Tetanus Booster (TDap): Unknown First/Initial COVID19 Vaccinat: non-vaccinated Seasonal Allergies Seasonal Allergies: No Past Medical History Surgery/Hospitalization HX: L Femur fx, Hx Opiod addiction Surgeries: Yes (LEFT FEMUR) Orthopedic Respiratory: No Cardiac: No Neurological: No Genitourinary: No Gastrointestinal: No Musculoskeletal: No Endocrine: No HEENT: No Cancer: No Psychosocial: Yes (Substance abuse) Integumentary: No Blood Disorders: No Physical Exam Vital Signs Vital Signs - First Documented 09/03/22 19:28 Temp 35.6 Pulse 108 Resp 18 B/P (MAP) 122/71 (88) Pulse Ox 98 O2 Delivery Room Air Capillary Refill : Height/Weight/BMI Height: '" Weight: lbs. oz. kg; 22.00 BMI Method: General Appearance: WD/WN, no apparent distress HEENT: PERRL/EOMI, normal ENT inspection, pharynx normal Neck: non-tender, full range of motion, supple, normal inspection Respiratory: chest non-tender, lungs clear, normal breath sounds, no respiratory distress, no accessory muscle use Cardiovascular: regular rate, rhythm, no edema, no murmur Gastrointestinal: normal bowel sounds, non tender, soft; No distended, No guarding, No rebound Extremities: normal range of motion, non-tender, normal inspection, no pedal edema, no calf tenderness, normal capillary refill Back: normal inspection, no CVA tenderness, no vertebral tenderness Neurologic/Psychiatric: no motor/sensory deficits, alert, normal mood/affect Skin: normal color, warm/dry Lymphatic: no adenopathy Progress/Results/Core Measures Results/Orders Lab Results Laboratory Tests Test 09/03/22 19:30 Range/Units White Blood Count 8.7 4.3-11.0 10^3/uL Red Blood Count 5.20 4.30-5.52 10^6/uL Hemoglobin 15.1 13.3-17.7 g/dL Hematocrit 44 40-54 % Mean Corpuscular Volume 85 80-99 fL Mean Corpuscular Hemoglobin 29 25-34 pg Mean Corpuscular Hemoglobin Concent 34 32-36 g/dL Red Cell Distribution Width 12.2 10.0-14.5 % Platelet Count 242 130-400 10^3/uL Mean Platelet Volume 11.0 9.0-12.2 fL Immature Granulocyte % (Auto) 0 % Neutrophils (%) (Auto) 60 42-75 % Lymphocytes (%) (Auto) 31 12-44 % Monocytes (%) (Auto) 8 0-12 % Eosinophils (%) (Auto) 1 0-10 % Basophils (%) (Auto) 1 0-10 % Neutrophils # (Auto) 5.3 1.8-7.8 10^3/uL Lymphocytes # (Auto) 2.7 1.0-4.0 10^3/uL Monocytes # (Auto) 0.7 0.0-1.0 10^3/uL Eosinophils # (Auto) 0.1 0.0-0.3 10^3/uL Basophils # (Auto) 0.1 0.0-0.1 10^3/uL Immature Granulocyte # (Auto) 0.0 0.0-0.1 10^3/uL Sodium Level 138 135-145 MMOL/L Potassium Level 3.9 3.6-5.0 MMOL/L Chloride Level 99 98-107 MMOL/L Carbon Dioxide Level 24 21-32 MMOL/L Anion Gap 15 H 5-14 MMOL/L Blood Urea Nitrogen 10 7-18 MG/DL Creatinine 0.99 0.60-1.30 MG/DL Estimat Glomerular Filtration Rate 109 BUN/Creatinine Ratio 10 Glucose Level 97 70-105 MG/DL Calcium Level 9.7 8.5-10.1 MG/DL Corrected Calcium 8.5-10.1 MG/DL Magnesium Level 2.0 1.6-2.4 MG/DL Total Bilirubin 0.6 0.1-1.0 MG/DL Aspartate Amino Transf (AST/SGOT) 16 5-34 U/L Alanine Aminotransferase (ALT/SGPT) 13 0-55 U/L Alkaline Phosphatase 81 40-136 U/L C-Reactive Protein < 0.30 <0.50 MG/DL Total Protein 8.0 6.4-8.2 GM/DL Albumin 5.0 H 3.2-4.5 GM/DL Lipase 30 8-78 U/L My Orders Orders - AC VELASCO MD Cbc With Automated Diff (09/03/22 19:33) Comprehensive Metabolic Panel (09/03/22 19:33) Lipase (09/03/22 19:33) Magnesium (09/03/22 19:33) Crp Fs (09/03/22 19:33) Famotidine Tablet (Pepcid Tablet) (09/03/22 19:45) Lidocaine 2% Viscous 15 Ml (Xylocaine Vi (09/03/22 19:45) Antacid Suspension (Mylanta Suspension (09/03/22 19:45) Acetaminophen Tablet (Tylenol Tablet) (09/03/22 19:45) Medications Given in ED Current Medications Medications Dose Ordered Sig/Migue Route Start Time Stop Time Status Last Admin Dose Admin Acetaminophen 1,000 mg ONCE ONCE PO 09/03/22 19:45 09/03/22 19:46 DC 09/03/22 19:41 1,000 MG Al Hydrox/Mg Hydrox/Simethicone 30 ml ONCE ONCE PO 09/03/22 19:45 09/03/22 19:46 DC 09/03/22 19:41 30 ML Famotidine 20 mg ONCE ONCE PO 09/03/22 19:45 09/03/22 19:46 DC 09/03/22 19:41 20 MG Lidocaine HCl 15 ml ONCE ONCE PO 09/03/22 19:45 09/03/22 19:46 DC 09/03/22 19:42 15 ML Vital Signs/I&O 09/03/22 19:28 Temp 35.6 Pulse 108 Resp 18 B/P (MAP) 122/71 (88) Pulse Ox 98 O2 Delivery Room Air Progress Progress Note : Progress Note 22-year male with above history coming in due to epigastric discomfort. ABCs were intact and vitals were stable on presentation. Physical exam reassuring including soft and nontender abdomen. He was given a GI cocktail with significant improvement in his symptoms. He states he has been written a prescription for PPI before, but he did not ever fill it because he has a lot of anxiety about medicines, and anxiety in general. I would recommend he follows up with the surgeon in [place] to be evaluated for potential scope. He also needs a primary care provider which I have given him information for Departure Impression Primary Impression: Epigastric abdominal pain Disposition: HOME, SELF-CARE Condition: Stable Departure-Patient Inst. Decision time for Depature: 20:16 Referrals: SRAVAN MCFARLAND MD, BRETT D DO NO,LOCAL PHYSICIAN (PCP) Primary Care Physician Patient Instructions: Gastritis ED Add. Discharge Instructions: Your labs are reassuring including a normal white blood cell count, normal inflammatory markers, and normal labs that are looking at things such as your gallbladder and pancreas. I suspect this is coming from your stomach, and you could potentially be developing an ulcer if you do not have 1 already. I want you to be evaluated by Dr. Green in [place], [place]. His numbers in this paperwork. I would also call Dr. Mcfarland's office to schedule an appointment for primary care. I do recommend taking the pantoprazole which will be sent to your pharmacy which can help with this type of pain. Scripts Pantoprazole Sodium (Pantoprazole Sodium) 40 Mg Tablet. 40 MG PO DAILY for 30 Days, #30 TAB Prov: AC VELASCO MD 09/03/22 Work/School Note: Work Release Form Date Seen in the Emergency Department: Sep 03, 2022 Return to Work: Sep 05, 2022 Restrictions: No Restrictions AC VELASCO MD Sep 03, 2022 19:40
[2022-09-03 19:43] LABS: BASOPHILS # (AUTO) 0.1 10^3/uL (0.0-0.1); BASOPHILS % (AUTO) 1 % (0-10); EOSINOPHILS # (AUTO) 0.1 10^3/uL (0.0-0.3); EOSINOPHILS % (AUTO) 1 % (0-10); HEMATOCRIT 44 % (40-54); HEMOGLOBIN 15.1 g/dL (13.3-17.7); LYMPHOCYTES # (AUTO) 2.7 10^3/uL (1.0-4.0); LYMPHOCYTES % (AUTO) 31 % (12-44); MEAN CORPUSCULAR HEMOGLOBIN 29 pg (25-34); MEAN CORPUSCULAR HGB CONC 34 g/dL (32-36); MEAN CORPUSCULAR VOLUME 85 fL (80-99); MONOCYTES # (AUTO) 0.7 10^3/uL (0.0-1.0); MONOCYTES % (AUTO) 8 % (0-12); NEUTROPHILS # (AUTO) 5.3 10^3/uL (1.8-7.8); NEUTROPHILS % (AUTO) 60 % (42-75); PLATELET COUNT 242 10^3/uL (130-400); WHITE BLOOD COUNT 8.7 10^3/uL (4.3-11.0)
[2022-09-03] MEDS ORDERED: FAMOTIDINE 20 MG (PEPCID) TABLET PO ONE (19:45)
[2022-09-03] MEDS ORDERED: LIDOCAINE 2% VISCOUS 15 ML UDC PO ONE (19:45)
[2022-09-03] MEDS ORDERED: ANTACID SUSP 30 ML UDC (MYLANTA) PO ONE (19:45)
[2022-09-03] MEDS ORDERED: ACETAMINOPHEN 500 MG TAB (TYLENOL) PO ONE (19:45)
[2022-09-03 20:05] LABS: ALANINE AMINOTRANSFERASE 13 U/L (0-55); ALKALINE PHOSPHATASE 81 U/L (40-136); BILIRUBIN,TOTAL 0.6 MG/DL (0.1-1.0); BUN/CREATININE RATIO 10; CALCIUM 9.7 MG/DL (8.5-10.1); CARBON DIOXIDE 24 MMOL/L (21-32); CHLORIDE 99 MMOL/L (98-107); CREATININE SERUM 0.99 MG/DL (0.60-1.30); GFR ESTIMATED 109; GLUCOSE 97 MG/DL (70-105); LIPASE 30 U/L (8-78); POTASSIUM 3.9 MMOL/L (3.6-5.0); SODIUM 138 MMOL/L (135-145)
[2022-09-03] MEDS ORDERED: PANT40TA52 PO (20:17)
[2022-09-03 20:20] VITALS: BP 122/71
== END 2022-09-03 20:20 | disposition home or self-care (01) ==
LOC: EDUNIT# 19:24 → ER FS 19:25
DX: R10.13 Epigastric pain (principal); F41.9 Anxiety disorder, unspecified; F17.200 Nicotine dependence, unspecified, uncomplicated; Z28.310 Unvaccinated for COVID-19
CPT/HCPCS: 36415; 80053; 83690; 83735; 85025; 86141

== ENCOUNTER 2022-09-04 23:07 | Emergency (ER) | payer SELFPAY ==
[~2022-09-04] VITALS: Ht 170 cm; Wt 62.0 kg
[~2022-09-04 23:07] MED LIST changes: +AMOX500T2 PO
[2022-09-04 23:25] VITALS: BP 124/78
--- NOTE | 2022-09-05 | ED Back Pain ---
General Chief Complaint: Back Problems Stated Complaint: CHRONIC BACK PAIN BETWEEN SHOULDER BLADES Nursing Triage Note: Pt presents with c/o headache, and back pain between his shoulder blades accompanied with L arm parasthesia that has been going on for several months. Pt reports the pain has become more constant the past several weeks. Pt is currently taking amoxacillin for strep throat. Source of Information: Patient (SOMEWHAT VAGUE HISTORIAN) History of Present Illness Date Seen by Provider: Sep 04, 2022 Time Seen by Provider: 23:44 Initial Comments PT ARRIVES VIA POV FROM HOME IN [place] C/O BACK PAIN "FOR MONTHS" --PT STATES AT LEAST 6 MONTHS, POSSIBLY LONGER PAIN IS IN HIS MID BACK AREA AT THIS TIME. 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 HIS WORK IS NOT ANY MORE STRENUOUS THAN PREVIOUS. PT STATES HE FEELS FINE WHEN HE GETS UP IN THE MORNING, AND THEN HIS BACK WILL START HURTING AT WORK, THEN AFTER HE GETS HOME AND SITS DOWN FOR AWHILE, HIS BACK WILL FEEL BETTER. HE STATES SOMETIMES THE PAIN WILL WRAP AROUND THE SIDES OF HIS RIBS PT DENIES ANY CHEST PAIN OR SHORTNESS OF BREATH WITH THIS PAIN HE DENIES ANY CURRENT ABDOMINAL PAIN OR NAUSEA/VOMITING / DIARRHEA NO URINARY SYMPTOMS NO FEVER/SWEATS/CHILLS NO COUGH OR URI SYMPTOMS PT STATES SYMPTOMS ARE NO DIFFERENT TONIGHT IN ANY WAY. PT STATES HE TOOK TYLENOL AT 1500 TODAY AND IT HELPED, BUT HAS NOT TAKEN ANYTHING FOR PAIN AT ANY OTHER TIME PT WAS SEEN YESTERDAY AT [place] [facility] FOR C/O ABDOMINAL PAIN, AND WAS GIVEN RX FOR PANTOPRAZOLE, BUT HE DID NOT FILL IT PT HAS HAD MULTIPLE VISITS TO ER ( MAINLY [place] [facility]) FOR VARIOUS PAIN COMPLAINTS AND HAS RECEIVED MULTIPLE RX'S FOR OPIATES PT HAS HISTORY OF RX OPIATE ABUSE PT STATES HE IS CURRENTLY TAKING AMOXIL FOR "STREP" AND HAS 4 DAYS LEFT. STATES HE WAS SEEN AT [facility] IN [place]. HE STATES THAT PROBLEM IS MUCH BETTER, AND DOES NOT HAVE A SORE THROAT RIGHT NO W. PT HAS NOT ATTEMPTED TO FOLLOW UP WITH [facility]- AT ANY TIME FOR THIS BACK PAIN COMPLAINT OR ANY OF THE OTHER PAIN COMPLAINTS THAT HE HAS PRESENTED TO ER WITH . PT STATES HE MOSTLY JUST GOES TO ER FOR ALL MEDICAL CARE. Allergies and Home Medications Allergies Coded Allergies: No Known Drug Allergies (Unverified , 02/27/20) Patient Home Medication List Home Medication List Reviewed: Yes Amoxicillin (Amoxicillin) 500 Mg Tablet, 500 MG PO BID, (Reported) Entered as Reported by: PADMAJA MASON on 09/03/221936 Cyclobenzaprine HCl (Cyclobenzaprine HCl) 10 Mg Tablet, 10 MG PO Q8H PRN for SPASMS Prescribed by: ASHLEIGH PRECIADO on 09/05/22 0004 Meloxicam (Meloxicam) 15 Mg Tablet, 15 MG PO DAILY Prescribed by: ASHLEIGH PRECIADO on 09/05/223 Pantoprazole Sodium (Pantoprazole Sodium) 40 Mg Tablet.dr, 40 MG PO DAILY Prescribed by: AC VELASCO on 09/03/222016 Discontinued Medications Pantoprazole Sodium (Pantoprazole Sodium) 40 Mg Tablet.dr, 40 MG PO DAILY Discontinued Reason: Referral/FU Appt-Addtl Prescribed by: BANG MARKS on 06/30/222015 Review of Systems Constitutional: no symptoms reported; No chills, No diaphoresis, No dizziness, No fever EENTM: see HPI Respiratory: no symptoms reported; No cough, No short of breath Cardiovascular: no symptoms reported; No chest pain Gastrointestinal: no symptoms reported; No abdominal pain, No constipation, No diarrhea, No nausea, No vomiting Genitourinary: no symptoms reported Musculoskeletal: see HPI, back pain Skin: no symptoms reported; No rash Psychiatric/Neurological: No Symptoms Reported; Denies Headache, Denies Numbness, Denies Paresthesia, Denies Tingling, Denies Tremors, Denies Weakness Past Zodquzq-Rxvllk-Sixzqd Hx Patient Social History Tobacco Use?: Yes Smokeless Tobacco Frequency: Current Everyday User Substance use?: Yes Substance type: Opiates/Opioids Additional substance use comme: RX DRUG ABUSE/OPIATE ADDICTION AND HAS OVERDOSED IN PAST Alcohol Use?: Yes Alcohol Frequency: Once in a while Immunizations Up To Date Tetanus Booster (TDap): Unknown First/Initial COVID19 Vaccinat: non-vaccinated Second COVID19 Vaccination Bradford: non-vaccinated Third COVID19 Vaccination Date: non-vaccinated Seasonal Allergies Seasonal Allergies: No Past Medical History Surgery/Hospitalization HX: L Femur fx, Hx Opiod addiction Surgeries: Yes (LEFT FEMUR FX/ORIF, LATER HARDWARE REMOVAL) Orthopedic Respiratory: No Cardiac: No Neurological: No Genitourinary: No Gastrointestinal: No Musculoskeletal: Yes (LEFT FEMUR FX/ORIF, LATER CASSIE REMOVAL) Fractures Endocrine: No HEENT: No Cancer: No Psychosocial: Yes (Substance abuse) Integumentary: No Blood Disorders: No Physical Exam Vital Signs Vital Signs - First Documented 09/04/22 23:25 Temp 36.6 Pulse 79 Resp 18 B/P (MAP) 124/78 (93) Capillary Refill : Height, Weight, BMI Height: '" Weight: lbs. oz. kg; 21.00 BMI Method: General Appearance: No Apparent Distress, WD/WN, Other (FLAT AFFECT. LAYING ON BACK, WITH LEGS HANGING OFF THE END OF THE BED. SITS STRAIGHT UP WITHOUT ANY DIFFICULTY. WALKS UPRIGHT AND MOVES WITHOUT ANY DIFFICULTY. ) HEENT: PERRL/EOMI Neck: Full Range of Motion, Normal Inspection, Non Tender, Supple Cardiovascular: Regular Rate, Rhythm, No Edema, No Murmur Respiratory: Chest Non Tender, Normal Breath Sounds, No Accessory Muscle Use, No Respiratory Distress Gastrointestinal: Non Tender, Soft Back: Other (MILD MID AND LOWER THORACIC AREA PARAVERTEBRAL MUSCLE TENDERNESS AND MILD SPASMS--LEFT > RIGHT. PALPATION REPRODUCES SYMPTOMS. NO BONY TENDERNE SS. 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 Norm as Tested Skin: Normal Color, Warm/Dry Progress/Results/Core Measures Results/Orders My Orders Orders - ASHLEIGH PRECIADO DO Rx-Cyclobenzaprine Tablet (Rx-Flexeril T (09/05/22 00:05) Rx-Naproxen (Rx-Naprosyn) (09/05/22 00:05) Vital Signs/I&O 09/04/22 23:25 Temp 36.6 Pulse 79 Resp 18 B/P (MAP) 124/78 (93) Blood Pressure Mean: 93 Progress Progress Note : Progress Note THERE IS NO VERTEBRAL BONY TENDERNESS THERE IS NOT ANY RADICULAR SYMPTOMS OR NEUROLOGICAL COMPLAINTS THERE IS NOT ANY DIRECT TRAUMA TO THE AREA SYMPTOMS ARE REPRODUCIBLE WITH PALPATION SYMPTOMS ARE THE SAME TONIGHT THEY HAVE BEEN FOR OVER 6 MONTHS NO EMERGENT IMAGING OR ANY OTHER TESTING IS NECESSARY AT THIS TIME ADVISED OF THE IMPORTANCE OF FOLLOW UP WITH [facility] FOR THIS PROBLEM AND FOR ONGOING MEDICAL CARE. OFFERED INJECTIONS FOR PAIN AND PT DECLINES PT WOULD LIKE A WORK NOTE. NOTE WRITTEN. (OF NOTE, PT'S BROTHER IS IN [facility] AT THIS TIME FOR THIS SAME COMPLAINT OF CHRONIC BACK PAIN) Departure Impression Primary Impression: Musculoskeletal back pain Disposition: HOME, SELF-CARE Condition: Stable Departure-Patient Inst. Decision time for Depature: 00:02 Referrals: [facility] [place] Patient Instructions: Back Muscle Strain (DC) Add. Discharge Instructions: MOIST HEAT TO AREA AT 20 MINUTE INTERVALS TYLENOL 1 GRAM 4 TIMES A DAY NEEDED FOR PAIN GET ALL OF YOUR PRESCRIPTIONS FILLED AND TAKE THEM PRESCRIBED FOLLOW UP WITH [facility] IN 4-5 DAYS FOR FURTHER CARE All discharge instructions reviewed with patient and/or family. Voiced understanding. Scripts Meloxicam (Meloxicam) 15 Mg Tablet 15 MG PO DAILY, #10 TAB Prov: ASHLEIGH PRECIADO DO 09/05/22 Cyclobenzaprine HCl (Cyclobenzaprine HCl) 10 Mg Tablet 10 MG PO Q8H PRN for SPASMS, #15 TAB 0 Refills Prov: ASHLEIGH PRECIADO DO 09/05/22 Work/School Note: Work Release Form Date Seen in the Emergency Department: Sep 04, 2022 Return to Work: Sep 06, 2022 Other Restrictions Listed Below: NO LIFTING OVER 10 LBS, NO TWISTING OR BENDING AT WAIST X 1 WEEK ASHLEIGH PRECIADO DO Sep 05, 2022 00:00
[2022-09-05] MEDS ORDERED: MELO15TA39 PO (00:04)
[2022-09-05] MEDS ORDERED: CYCL10TA25 PO (00:04)
[2022-09-05] MEDS ORDERED: RX-NAPROXEN (NAPROSYN) 250 MG TAB PPK#4 PO STA (00:05)
[2022-09-05] MEDS ORDERED: RX-CYCLOBENZAPRINE 10 MG (FLEXERIL) TAB PPK#3 PO STA (00:05)
== END 2022-09-05 00:18 | disposition home or self-care (01) ==
LOC: EDUNIT# 23:07 → ER 23:11
DX: M54.6 Pain in thoracic spine (principal); F17.200 Nicotine dependence, unspecified, uncomplicated; Z28.310 Unvaccinated for COVID-19
CPT/HCPCS: 99283

== ENCOUNTER 2022-10-01 23:34 | Emergency (ER) | payer SELFPAY ==
[~2022-10-01] VITALS: Ht 173.7 cm; Wt 60.9 kg
[~2022-10-01 23:34] MED LIST changes: +CYCL10TA25 PO; +MELO15TA39 PO
[2022-10-02] MEDS ORDERED: ACETAMINOPHEN 500 MG TAB (TYLENOL) PO ONE (00:15)
[2022-10-02] MEDS ORDERED: IBUPROFEN 600 MG (MOTRIN) TAB PO ONE (00:15)
--- NOTE | 2022-10-02 00:19 | ED Cough/URI ---
General Chief Complaint: Cough/Cold/Flu Symptoms Stated Complaint: FEVER.CHILLS/CRAMPING Nursing Triage Note: PATIENT STATES HE HAS HAD FEVER COUGH CHILLS BODYACHES FOR THE LAST THREE DAYS. STATES FAMILY HAS BEEN DIAGNOSED WITH FLU A Source: patient Exam Limitations: no limitations History of Present Illness Date Seen by Provider: Oct 02, 2022 Time Seen by Provider: 00:00 Initial Comments Patient is a 22-year-old male who presents with body aches chills and cramps starting yesterday. Patient's and child had influenza yesterday. Patient also reports sore throat. No shortness of breath history of asthma. No nausea or vomiting. No other acute symptoms or complaints. Patient took 200 mg of ibuprofen prior to to arrival. Timing/Duration: yesterday Severity/Quality: other Prior Episodes/Possible Cause: other Modifying Factors: Improves With Other Associated Symptoms: other Allergies and Home Medications Allergies Coded Allergies: No Known Drug Allergies (Unverified , 02/27/20) Patient Home Medication List Home Medication List Reviewed: Yes Amoxicillin (Amoxicillin) 500 Mg Tablet, 500 MG PO BID, (Reported) Entered as Reported by: PADMAJA MASON on 09/03/221936 Cyclobenzaprine HCl (Cyclobenzaprine HCl) 10 Mg Tablet, 10 MG PO Q8H PRN for SPASMS Prescribed by: ASHLEIGH PRECIADO on 09/05/223 Meloxicam (Meloxicam) 15 Mg Tablet, 15 MG PO DAILY Prescribed by: ASHLEIGH PRECIADO on 09/05/223 Pantoprazole Sodium (Pantoprazole Sodium) 40 Mg Tablet.dr, 40 MG PO DAILY Prescribed by: AC VELASCO on 09/03/222016 Review of Systems Review of Systems Constitutional: see HPI EENTM: see HPI Respiratory: see HPI Cardiovascular: see HPI Gastrointestinal: see HPI Genitourinary: see HPI Musculoskeletal: see HPI Skin: see HPI Psychiatric/Neurological: See HPI Hematologic/Lymphatic: See HPI Past Mryvtxd-Zegisv-Fziaep Hx Patient Social History Tobacco Use?: No Immunizations Up To Date Tetanus Booster (TDap): Unknown First/Initial COVID19 Vaccinat: non-vaccinated Second COVID19 Vaccination Bradford: non-vaccinated Third COVID19 Vaccination Date: non-vaccinated Seasonal Allergies Seasonal Allergies: No Past Medical History Surgery/Hospitalization HX: L Femur fx, Hx Opiod addiction Surgeries: Yes (LEFT FEMUR FX/ORIF, LATER HARDWARE REMOVAL) Orthopedic Respiratory: No Cardiac: No Neurological: No Genitourinary: No Gastrointestinal: No Musculoskeletal: Yes (LEFT FEMUR FX/ORIF, LATER CASSIE REMOVAL) Fractures Endocrine: No HEENT: No Cancer: No Psychosocial: Yes (Substance abuse) Integumentary: No Blood Disorders: No Physical Exam Vital Signs - First Documented 10/01/22 23:46 Temp 36.6 Pulse 91 Resp 20 B/P (MAP) 116/68 (84) Pulse Ox 100 O2 Delivery Room Air Capillary Refill : Less Than 3 Seconds Height: '" Weight: lbs. oz. kg; 20.00 BMI Method: General Appearance: WD/WN, no apparent distress Eyes: Bilateral Eye Normal Inspection, Bilateral Eye PERRL, Bilateral Eye EOMI HEENT: PERRL/EOMI, normal ENT inspection, pharyngeal erythema Neck: non-tender, full range of motion, supple Respiratory: chest non-tender, lungs clear Cardiovascular: normal peripheral pulses, regular rate, rhythm, no edema Gastrointestinal: non tender, soft Neurologic/Psychiatric: alert, oriented x 3 Skin: normal color, warm/dry Focused Exam Sepsis Stage: Ruled Out Progress/Results/Core Measures Suspected Sepsis SIRS Temperature: Pulse: 91 Respiratory Rate: 20 Blood Pressure 116 /68 Mean: 84 Results/Orders My Orders Orders - ANDREEA ROSARIO DO Ibuprofen Tablet (Motrin Tablet) (10/02/22 00:15) Acetaminophen Tablet (Tylenol Tablet) (10/02/22 00:15) Vital Signs/I&O 10/01/22 10/01/22 23:46 23:46 Temp 36.6 Pulse 91 Resp 20 B/P (MAP) 116/68 (84) Pulse Ox 100 O2 Delivery Room Air Room Air Capillary Refill : Less Than 3 Seconds Blood Pressure Mean: 84 Departure Communication (Admissions) Patient with acute viral syndrome consistent with influenza and known exposure. Ibuprofen and Tylenol given. Recommendations are watchful waiting supportive care patient work note provided Impression Primary Impression: Influenza Disposition: 01 HOME, SELF-CARE Condition: Stable Departure-Patient Inst. Decision time for Depature: 00:17 Referrals: NO,LOCAL PHYSICIAN (PCP/Family) Primary Care Physician Patient Instructions: Flu, Adult ED Add. Discharge Instructions: You were evaluated in the emergency department for fever, sore throat body aches and cramps. Your symptoms are consistent with influenza. Please increase fluids, alternate Tylenol and ibuprofen for pain. Stay home from work for the next 3 to 4 days. Follow-up with your PCP as needed. All discharge instructions reviewed with patient and/or family. Voiced understanding. Work/School Note: Work Release Form Date Seen in the Emergency Department: Oct 02, 2022 Return to Work: Oct 06, 2022 Restrictions: No Restrictions ANDREEA ROSARIO DO Oct 02, 2022 00:19
[2022-10-02 00:22] VITALS: BP 116/68
== END 2022-10-02 00:20 | disposition home or self-care (01) ==
LOC: EDUNIT# 23:34 → ER FS 23:37
DX: J11.1 Influenza due to unidentified influenza virus with other respiratory manifestations (principal); B34.9 Viral infection, unspecified; Z28.310 Unvaccinated for COVID-19
CPT/HCPCS: 99283

== ENCOUNTER 2022-10-06 23:01 | Emergency (ER) | payer SELFPAY ==
[2022-10-06] MEDS ORDERED: ONDANSETRON 4 MG (ZOFRAN) ORAL DISSOLVE TAB PO STA (23:15)
--- NOTE | 2022-10-06 23:17 | ED Headache ---
General Chief Complaint: Head/Cervical Problems Stated Complaint: LEFT ARM NUMB - HEADACHE - BACK PAIN - LEG PAIN Nursing Triage Note: Pt complaining of a headache as well as left arm and left leg numbness/tingling that started a few days ago Source: patient Exam Limitations: no limitations History of Present Illness Date Seen by Provider: Oct 06, 2022 Time Seen by Provider: 23:00 Initial Comments Patient is a 22-year-old male who presents with nausea, headache for the past 3 days after having flulike symptoms and being evaluated in the emergency department 4 days ago. Patient also reports tingling in left arm, and leg. No neck pain stiffness or rash reports fever and sweats.. No blurred vision. History of chronic anxiety and panic attacks. No other acute symptoms or complaints. Timing/Duration: waxing and waning Severity/Quality: other Location: other Prior Headaches/Recent Trauma: other Modifying Factors: improves with other Associated Symptoms: other Allergies and Home Medications Allergies Coded Allergies: No Known Drug Allergies (Unverified , 02/27/20) Patient Home Medication List Amoxicillin (Amoxicillin) 500 Mg Tablet, 500 MG PO BID, (Reported) Entered as Reported by: PADMAJA MASON on 09/03/221936 Cyclobenzaprine HCl (Cyclobenzaprine HCl) 10 Mg Tablet, 10 MG PO Q8H PRN for SPASMS Prescribed by: ASHLEIGH PRECIADO on 09/05/22 0004 Meloxicam (Meloxicam) 15 Mg Tablet, 15 MG PO DAILY Prescribed by: ASHLEIGH PRECIADO on 09/05/22 0004 Pantoprazole Sodium (Pantoprazole Sodium) 40 Mg Tablet.dr, 40 MG PO DAILY Prescribed by: AC VELASCO on 09/03/222016 Review of Systems Review of Systems Constitutional: see HPI Eyes: See HPI Ears, Nose, Mouth, Throat: see HPI Respiratory: see HPI Cardiovascular: see HPI Gastrointestinal: see HPI Genitourinary: see HPI Musculoskeletal: see HPI Skin: see HPI Psychiatric/Neurological: See HPI All Other Systems Reviewed Negative Unless Noted: No Past Wwhgjap-Saevna-Uesgqn Hx Patient Social History Tobacco Use?: No Use of E-Cig and/or Vaping dev: No Substance use?: No Alcohol Use?: No Pt feels they are or have been: No Immunizations Up To Date Tetanus Booster (TDap): Unknown First/Initial COVID19 Vaccinat: non-vaccinated Second COVID19 Vaccination [place]: non-vaccinated Third COVID19 Vaccination Date: non-vaccinated Seasonal Allergies Seasonal Allergies: No Past Medical History Surgery/Hospitalization HX: L Femur fx, Hx Opiod addiction Surgeries: Yes (LEFT FEMUR FX/ORIF, LATER HARDWARE REMOVAL) Orthopedic Respiratory: No Cardiac: No Neurological: No Genitourinary: No Gastrointestinal: No Musculoskeletal: Yes (LEFT FEMUR FX/ORIF, LATER CASSIE REMOVAL) Fractures Endocrine: No HEENT: No Cancer: No Psychosocial: Yes (Substance abuse) Integumentary: No Blood Disorders: No Physical Exam Vital Signs Vital Signs - First Documented 10/06/22 23:05 Temp 37.1 Pulse 110 Resp 20 B/P (MAP) 125/68 (87) Pulse Ox 100 O2 Delivery Room Air Capillary Refill : Less Than 3 Seconds Height, Weight, BMI Height: '" Weight: lbs. oz. kg; 20.00 BMI Method: General Appearance: WD/WN, no apparent distress HEENT: PERRL/EOMI, TMs normal, pharynx normal Neck: non-tender, full range of motion, supple Cardiovascular: normal peripheral pulses, regular rate, rhythm Respiratory: lungs clear, normal breath sounds Gastrointestinal: non tender, soft Back: normal inspection, no CVA tenderness Psychiatric: alert, oriented x 3 Crainal Nerves: PERRL Motor/Sensory: no motor deficit, no sensory deficit, no pronator drift Skin: normal color, warm/dry Progress/Results/Core Measures Results/Orders My Orders Orders - ANDREEA ROSARIO DO Ct Head Wo (10/06/22 23:15) Ondansetron Oral Dissolve Tab (Zofran (10/06/22 23:15) Morphine Injection (Morphine Injection (10/06/22 23:15) Morphine Injection (Morphine Injection (10/07/22 00:12) Blood Culture (10/07/22 00:23) Vital Signs/I&O 10/06/22 23:05 Temp 37.1 Pulse 110 Resp 20 B/P (MAP) 125/68 (87) Pulse Ox 100 O2 Delivery Room Air Blood Pressure Mean: 87 Departure Communication (Admissions) CT head without contrast: No acute findings per radiology report. Patient with residual flulike illness with headache and anxiety. No focal neurologic deficits on exam. Patient clinically anxious. Morphine and Zofran given with improvement. Recommendations are supportive care watchful waiting and PCP follow-up. Return precautions reviewed. Patient verbalizes understanding agreement discharge instructions prior to departure. Impression Primary Impression: Headache Additional Impressions: Flu-like symptoms Anxiety state Disposition: 01 HOME, SELF-CARE Condition: Stable Departure-Patient Inst. Decision time for Depature: 00:31 Referrals: NO,LOCAL PHYSICIAN (PCP/Family) Primary Care Physician Patient Instructions: Headache, Adult ED, Anxiety, Adult (DC), Viral Syndrome (DC) Add. Discharge Instructions: You were evaluated in the emergency department for headache, chest pain, and arm numbness. Your symptoms are consistent with flulike illness with anxiety attack. Please go home and rest increase fluids alternate ibuprofen and Tylenol for pain. Take Ativan as needed for anxiety. Follow-up with your PCP in 2 to 3 days for reevaluation if symptoms persist. Return to the ED if new or worsening symptoms. All discharge instructions reviewed with patient and/or family. Voiced u nderstanding. Scripts Lorazepam (Ativan) 1 Mg Tablet 1 MG SL Q8H PRN for ANXIETY for 7 Days, #6 TAB Prov: ANDREEA ROSARIO DO 10/07/22 ANDREEA ROSARIO DO Oct 06, 2022 23:17
[2022-10-06] MEDS: morphine INJ 10 MG/ML 1ML (SYR OR VIAL) IM STA ×2 (23:20→23:26)
[2022-10-07] MEDS ORDERED: morphine INJ 10 MG/ML 1ML (SYR OR VIAL) IM STA (00:12)
[2022-10-07] MEDS ORDERED: LORA-405 SL (00:34)
[2022-10-07 00:41] VITALS: BP 125/68
--- NOTE | 2022-10-07 06:05 | Diagnostic Imaging Report ---
PROCEDURE: CT head without contrast. TECHNIQUE: Multiple contiguous axial images were obtained through the brain without the use of intravenous contrast. Auto Exposure Controls were utilized during the CT exam to meet ALARA standards for radiation dose reduction. INDICATION: Headache with altered mental status. COMPARISON: 06/30/2022. DISCUSSION: No adverse interval change. No acute intracranial hemorrhage, mass, midline shift, or hydrocephalus. The ventricles and sulci are normal size and configuration for age. Polypoid mucosal thickening noted within the bilateral maxillary sinuses. No air-fluid level. The orbits, mastoid air cells, and calvarium are unremarkable. IMPRESSION: 1. Stable negative head CT. 2. Agree with preliminary report. Dictated by: Dictated on workstation # [id number]
== END 2022-10-07 00:44 | disposition home or self-care (01) ==
LOC: EDUNIT# 23:01 → ER FS 23:02
DX: R51.9 Headache, unspecified (principal); F41.9 Anxiety disorder, unspecified; Z28.310 Unvaccinated for COVID-19
CPT/HCPCS: 70450